=== PATIENT | female | born 1955 | race Two or more races ===

== ENCOUNTER → 2021-03-13 14:54 | Outpatient (BNVA) | payer MEDICARE, SELFPAY | PROVIDERS: PCP Internal Medicine; Visit Provider Hospitalist | DX: J45.40 Moderate persistent asthma, uncomplicated (principal); G47.33 Obstructive sleep apnea (adult) (pediatric); G47.00 Insomnia, unspecified | CPT/HCPCS: 99202 ==

== ENCOUNTER → 2021-07-12 13:51 | Outpatient (BNVA) | payer MEDICARE, SELFPAY | PROVIDERS: PCP Internal Medicine; Visit Provider Hospitalist | DX: J45.41 Moderate persistent asthma with (acute) exacerbation (principal); G47.33 Obstructive sleep apnea (adult) (pediatric); J06.9 Acute upper respiratory infection, unspecified | CPT/HCPCS: Q3014 ==

== ENCOUNTER → 2021-08-23 13:34 | Outpatient (BNVA) | payer OTHER, SELFPAY | PROVIDERS: PCP Internal Medicine Geriatric Medicine; Visit Provider Hospitalist | DX: J45.41 Moderate persistent asthma with (acute) exacerbation (principal); G47.33 Obstructive sleep apnea (adult) (pediatric); G47.00 Insomnia, unspecified; J06.9 Acute upper respiratory infection, unspecified | CPT/HCPCS: 94640; 99212 ==

== ENCOUNTER → 2022-01-10 13:03 | Outpatient (BNVA) | payer OTHER, SELFPAY | PROVIDERS: PCP Internal Medicine Geriatric Medicine; Visit Provider Hospitalist | DX: J44.9 Chronic obstructive pulmonary disease, unspecified (principal); J45.41 Moderate persistent asthma with (acute) exacerbation; G47.33 Obstructive sleep apnea (adult) (pediatric); G47.00 Insomnia, unspecified; J06.9 Acute upper respiratory infection, unspecified | CPT/HCPCS: Q3014 ==

== ENCOUNTER → 2022-06-28 13:32 | Outpatient (BNVA) | payer OTHER, SELFPAY | PROVIDERS: PCP Internal Medicine Geriatric Medicine; Visit Provider Hospitalist | DX: J45.41 Moderate persistent asthma with (acute) exacerbation (principal); J44.9 Chronic obstructive pulmonary disease, unspecified; G47.33 Obstructive sleep apnea (adult) (pediatric); Z99.89 Dependence on other enabling machines and devices | CPT/HCPCS: Q3014 ==

== ENCOUNTER → 2022-08-27 14:16 | Outpatient (BNVA) | payer OTHER, SELFPAY | PROVIDERS: PCP Internal Medicine Geriatric Medicine; Visit Provider Hospitalist | DX: J44.9 Chronic obstructive pulmonary disease, unspecified (principal); J45.41 Moderate persistent asthma with (acute) exacerbation; G47.33 Obstructive sleep apnea (adult) (pediatric); G47.00 Insomnia, unspecified; Z79.899 Other long term (current) drug therapy | CPT/HCPCS: 99212 ==

== ENCOUNTER 2023-10-30 14:09 | Outpatient (AMB) | payer OTHER, SELFPAY ==
--- NOTE | 2023-10-30 14:12 | MHC.OFFVIS ---
Vital Signs 10/30/23 14:13 Height 5 ft 3 in Weight 152 lb BMI 26.9 Pulse 74 Pulse Source Pulse Oximeter Pulse Oximetry (%) 98 Oxygen Delivery Method Room Air Intake Visit Reasons: Asthma Virtual Assistant [employer] Required: No Allergies pollen extracts Adverse Reaction (Severe, Verified 10/30/23 14:16) Rash Dust Adverse Reaction (Severe, Uncoded 10/30/23 14:16) Rash HPI Comments Details: The patient is a 68-year-old woman with a known history of asthma in addition to obstructive sleep apnea. The patient has been having issues with worsening shortness of breath. She has also complained of chest tightness and wheezing. She does have a Flovent Diskus inhaler which she uses daily. In addition to that she was given a combination inhaler. . The patient is very confused about her inhalers. I try to review the different classifications and why she needs to be on multiple inhalers to treat her asthma. The best option will be to provide her with a simple once a day therapy that will provide her better efficacy and also better adherence. I do believe the Trelegy inhaler be the best option for her. In addition to that she understands that she needs to carry her short-acting beta agonist as needed for when she gets chest tightness and wheezing. The patient does have a history of sleep apnea. She has not been using the CPAP. The patient did not tolerate the CPAP. We did review the sleep study she had many years ago which demonstrated only mild sleep apnea. I did recommend the patient continue positional therapy for now. The patient also has insomnia. She was requesting zolpidem. At this point I do not believe that is opening be a good option for her. I will send a gabapentin for now. This will provide her with a good sleep aid without developing any physical dependency. 01/10/2022 the patient has a telephone visit today. Overall the patient is doing better. She did start taking the Trelegy. it has been much more effective. The patient however has not been rinsing her mouth. Now she has issues with gingiva. She has significant teeth DKA. She is going to start rinsing bed early. In view of the gingival disease I will prescribe her chlorhexidine mouthwash at least she can use it for 14 days in hopes to improve her oral health. In the meantime the patient will continue to take the Trelegy but rinse afterwards. She is sleeping better with the Ambien. The patient understands that he will to monitor closely for any unusual symptoms she also should take medication holidays. She has tried multiple other sleep aids without will affect in this is much better for her. Will continue to monitor her progress. He is waking up rested her [place] score is below 8 which is reassuring. 06/28/2022 the patient is here for a visit. The patient is having worsening shortness of breath and cough. Moderate severity. Feels chest tightness. Denies any sick contacts. She denies any fevers. She has been using her inhalers with partial improvement. She is concerned that her symptoms are going to get worse. She does have a nebulizer but she is not aware where the nebulizer risk. I did recommend she can look for in order to start using nebulizer at will she will provide her some relief. In the meantime she can start a course of antibiotics for chest congestion bronchitis. The patient also can start prednisone is no better. I will send a prescription to the pharmacy. The next visit the patient will come into the office to be evaluated since she has not been seen in person since July of 2021. 08/27/2022 the patient is here for a pulmonary follow-up visit. The patient overall has been feeling better from a respiratory status. She is responding well to the Trelegy inhaler. The patient also has a rescue medication. She has been dealing with her dentition. She knows that she needs to rinse her mouth well after the Trelegy because they can worsen her gingival disease. At this point she will need to have her T taken now and then replaced with a denture. The patient also has been using the Ambien with good effect for sleep. She is also sleeping on her side as far as positional therapy to avoid significant sleep apnea. We did review her last chest x-ray from 2021 demonstrating no acute disease. The patient does not need any additional testing at this time. 10/30/2023 the patient is here for a pulmonary follow-up visit. The patient overall has been doing about the same. Still complains of dyspnea on exertion. She does use her rescue inhaler typically less than 2 times a week. The Trelegy inhaler has been very helpful. The patient has not had any recent imaging studies. The patient does complaint of sinus congestion. She will try a nasal spray to see if we can get her postnasal drip under control. Moderate severity. Otherwise her lungs sound well. The patient's last chest x-ray is back in 2021. No evidence of any active pulmonary disease. If the patient continues to have symptoms be helpful to get a chest x-ray. The patient also has been using Ambien for sleep with good effect. Otherwise patient is doing well she is going to continue the respiratory therapy and have an x-ray whenever possible. The patient follow-up in year's time. She knows about the Ambien. She needs to take breaks from it. If she develops any amnesia she needs to make sure those to tell her providers. [facility] Medical History (Updated 10/30/23 @ 14:18 by Christopher Pickens MD) Asthma-COPD overlap syndrome COPD (chronic obstructive pulmonary disease) URI (upper respiratory infection) Insomnia PRIMITIVO (obstructive sleep apnea) Asthma Social History (Updated 03/13/21 @ 15:24 by KERRY Chahal) Patient Tobacco Use Status: Never used Tobacco Review of Systems Const Reports daytime sleepiness, Reports difficulty sleeping, Denies night sweats and Denies snoring ENT Reports bleeding gums, Denies change in voice, Reports dental pain, Reports lip swelling, Denies mouth pain, Reports nasal congestion, Reports nasal discharge, Reports nasal obstruction and Denies tongue swelling Card Denies chest pain and Denies dyspnea Resp Denies chest congestion, Reports cough, Denies dyspnea, Denies snoring and Reports wheezing GI Denies abdominal pain Musc Denies no additional complaints Neuro Denies Neuro-related abnormal movements Psych Denies no additional complaints Gamal/Lymph Denies easy bleeding and Denies lymphadenopathy Aller/Immun Reports lip swelling, Denies tongue swelling and Reports wheezing Physical Exam Vital Signs: Last Vital Signs Pulse 74 10/30/23 14:13 Pulse Ox 98 10/30/23 14:13 Oxygen Delivery Method Room Air 10/30/23 14:13 BMI result Body Mass Index 26.9 Const General: alert HEENT General nose exam: Abnormal external nose present and Nasal discharge present Eyes Pupils: Equal, round and reactive pupils present Neck Neck: Yes normal visual inspection, Yes full ROM and Yes no lymphadenopathy Chest Chest palpation & inspection: normal inspection of the chest Resp Auscultation: diminished lung sounds Cardio Rate: regular rate Rhythm: regular rhythm Heart sounds: S1 normal heart sound present and S2 normal heart sound present GI Palpation (GI): Soft to palpation and nontender Auscultation: normal bowel sounds General: Yes no CVA tenderness Back/Spine/Pelvis Back: no CVA tenderness Skin General skin exam: rashes and/or lesions noted Neuro Cranial nerves: Yes Equal, round and reactive pupils present Assessment & Plan Assessment & Plan (1) Asthma: Code(s): J45.909 - Unspecified asthma, uncomplicated Category: Medical Qualifiers: Asthma complication type: with acute exacerbation Asthma persistence: persistent Asthma severity: moderate Qualified Code(s): J45.41 - Moderate persistent asthma with (acute) exacerbation (2) PRIMITIVO (obstructive sleep apnea): Comment: not on PAP therapy Code(s): G47.33 - Obstructive sleep apnea (adult) (pediatric) Category: Medical (3) Insomnia: Code(s): G47.00 - Insomnia, unspecified Category: Medical Qualifiers: Insomnia type: primary Qualified Code(s): F51.01 - Primary insomnia (4) Asthma-COPD overlap syndrome: Code(s): J44.9 - Chronic obstructive pulmonary disease, unspecified Category: Medical Plan Continue Trelegy, needs to rinse Nebulize therapy with albuterol short-acting beta agonist as needed positional therapy for her sleep apnea. fluticasone nasal spray CXR [facility] 8-12 months Orders: Orders XR chest 2V Today J44.9 - Chronic obstructive pulmonary disease, unspecified Medications: New fluticasone propionate 50 mcg/actuation 2 sprays intranasal DAILY 30 days 15.8 mL 11RF J31.0 - Chronic rhinitis Refilled zolpidem 10 mg PO BEDTIME 30 days PRN 30 tabs 3RF sleep Coding Level of Care Code Est Pt Level 4 (72553) Complex EM visit Add On G2211 Diagnoses Moderate persistent asthma with acute exacerbation J45.41 Asthma complication type: with acute exacerbation Asthma persistence: persistent Asthma severity: moderate PRIMITIVO (obstructive sleep apnea) G47.33 Primary insomnia F51.01 Insomnia type: primary Asthma-COPD overlap syndrome J44.9 Time Spent (min) 17
[2023-10-30 14:13] VITALS: PULSE 74; O2SAT 98; BMI 26.9
== END 2023-10-30 14:33 | disposition home or self-care (01) ==
PROVIDERS: PCP Internal Medicine Geriatric Medicine; Visit Provider Hospitalist
DX: J45.41 Moderate persistent asthma with (acute) exacerbation (principal); G47.33 Obstructive sleep apnea (adult) (pediatric); F51.01 Primary insomnia; J44.9 Chronic obstructive pulmonary disease, unspecified
CPT/HCPCS: 99214; G2211

== ENCOUNTER → 2023-10-30 14:09 | Outpatient (BNVA) | payer OTHER, SELFPAY | PROVIDERS: PCP Internal Medicine Geriatric Medicine; Visit Provider Hospitalist | DX: J45.41 Moderate persistent asthma with (acute) exacerbation (principal); J44.9 Chronic obstructive pulmonary disease, unspecified; J31.0 Chronic rhinitis; G47.33 Obstructive sleep apnea (adult) (pediatric); F51.01 Primary insomnia | CPT/HCPCS: 99212 ==

== ENCOUNTER 2024-01-08 13:30 | Outpatient (REF) | payer OTHER, SELFPAY | END 2024-01-08 13:31 | disposition home or self-care (01) | LOC: HO.XRAY 13:30 | PROVIDERS: PCP Student in an Organized Health Care Education/Training Program; Visit Provider Hospitalist | DX: M54.2 Cervicalgia (principal); J44.9 Chronic obstructive pulmonary disease, unspecified; J45.41 Moderate persistent asthma with (acute) exacerbation; G47.33 Obstructive sleep apnea (adult) (pediatric); F51.01 Primary insomnia; K21.9 Gastro-esophageal reflux disease without esophagitis; Z79.899 Other long term (current) drug therapy | CPT/HCPCS: 71046; 72040; 99212 ==

== ENCOUNTER 2024-01-08 13:30 | Outpatient (AMB) | payer OTHER, SELFPAY ==
[2024-01-08 13:35] VITALS: BP 128/70; PULSE 71; O2SAT 98; BMI 27.5
--- NOTE | 2024-01-08 13:35 | MHC.OFFVIS ---
Vital Signs 01/08/24 13:35 Height 5 ft 3 in Weight 155 lb BMI 27.5 BP 128/70 Blood Pressure Location Lt brachial Position Sitting Pulse 71 Pulse Source Pulse Oximeter Pulse Oximetry (%) 98 Oxygen Delivery Method Room Air Intake Visit Reasons: productive cough/wheeze/shortness of breath Allergies pollen extracts Adverse Reaction (Severe, Verified 01/08/24 13:37) Rash Dust Adverse Reaction (Severe, Uncoded 01/08/24 13:37) Rash HPI Comments Details: The patient is a 68-year-old woman with a known history of asthma in addition to obstructive sleep apnea. The patient has been having issues with worsening shortness of breath. She has also complained of chest tightness and wheezing. She does have a Flovent Diskus inhaler which she uses daily. In addition to that she was given a combination inhaler. . The patient is very confused about her inhalers. I try to review the different classifications and why she needs to be on multiple inhalers to treat her asthma. The best option will be to provide her with a simple once a day therapy that will provide her better efficacy and also better adherence. I do believe the Trelegy inhaler be the best option for her. In addition to that she understands that she needs to carry her short-acting beta agonist as needed for when she gets chest tightness and wheezing. The patient does have a history of sleep apnea. She has not been using the CPAP. The patient did not tolerate the CPAP. We did review the sleep study she had many years ago which demonstrated only mild sleep apnea. I did recommend the patient continue positional therapy for now. The patient also has insomnia. She was requesting zolpidem. At this point I do not believe that is opening be a good option for her. I will send a gabapentin for now. This will provide her with a good sleep aid without developing any physical dependency. 01/10/2022 the patient has a telephone visit today. Overall the patient is doing better. She did start taking the Trelegy. it has been much more effective. The patient however has not been rinsing her mouth. Now she has issues with gingiva. She has significant teeth DKA. She is going to start rinsing bed early. In view of the gingival disease I will prescribe her chlorhexidine mouthwash at least she can use it for 14 days in hopes to improve her oral health. In the meantime the patient will continue to take the Trelegy but rinse afterwards. She is sleeping better with the Ambien. The patient understands that he will to monitor closely for any unusual symptoms she also should take medication holidays. She has tried multiple other sleep aids without will affect in this is much better for her. Will continue to monitor her progress. He is waking up rested her [place] score is below 8 which is reassuring. 06/28/2022 the patient is here for a visit. The patient is having worsening shortness of breath and cough. Moderate severity. Feels chest tightness. Denies any sick contacts. She denies any fevers. She has been using her inhalers with partial improvement. She is concerned that her symptoms are going to get worse. She does have a nebulizer but she is not aware where the nebulizer risk. I did recommend she can look for in order to start using nebulizer at will she will provide her some relief. In the meantime she can start a course of antibiotics for chest congestion bronchitis. The patient also can start prednisone is no better. I will send a prescription to the pharmacy. The next visit the patient will come into the office to be evaluated since she has not been seen in person since July of 2021. 08/27/2022 the patient is here for a pulmonary follow-up visit. The patient overall has been feeling better from a respiratory status. She is responding well to the Trelegy inhaler. The patient also has a rescue medication. She has been dealing with her dentition. She knows that she needs to rinse her mouth well after the Trelegy because they can worsen her gingival disease. At this point she will need to have her T taken now and then replaced with a denture. The patient also has been using the Ambien with good effect for sleep. She is also sleeping on her side as far as positional therapy to avoid significant sleep apnea. We did review her last chest x-ray from 2021 demonstrating no acute disease. The patient does not need any additional testing at this time. 10/30/2023 the patient is here for a pulmonary follow-up visit. The patient overall has been doing about the same. Still complains of dyspnea on exertion. She does use her rescue inhaler typically less than 2 times a week. The Trelegy inhaler has been very helpful. The patient has not had any recent imaging studies. The patient does complaint of sinus congestion. She will try a nasal spray to see if we can get her postnasal drip under control. Moderate severity. Otherwise her lungs sound well. The patient's last chest x-ray is back in 2021. No evidence of any active pulmonary disease. If the patient continues to have symptoms be helpful to get a chest x-ray. The patient also has been using Ambien for sleep with good effect. Otherwise patient is doing well she is going to continue the respiratory therapy and have an x-ray whenever possible. The patient follow-up in year's time. She knows about the Ambien. She needs to take breaks from it. If she develops any amnesia she needs to make sure those to tell her providers. 01/08/2024 the patient is here for pulmonary follow-up visit. The patient is still complaining of worsening cough and shortness of breath. She does not feel any better. She continues on the Trelegy inhaler. Although the congestion is still there. She has not had a recent chest x-ray although she was supposed to have 1 that was order. She can have 1 done prior to discharge. In addition to that will treat her for about her bronchitis see if the mucus congestion improves. The patient does state the sometimes she has dyspepsia and sometimes she has food that comes up and she feels like good regurgitates an aspiration to her lungs. Will have her get a barium swallow before the next visit so we can address the question. Once the patient gets chest x-ray is vest abnormal will consider getting further imaging studies including CT scan of the chest to better address the chronic symptoms. [facility] Medical History (Updated 01/08/24 @ 13:49 by Christopher Pickens MD) Neck pain Asthma-COPD overlap syndrome COPD (chronic obstructive pulmonary disease) URI (upper respiratory infection) Insomnia PRIMITIVO (obstructive sleep apnea) Asthma Social History (Updated 03/13/21 @ 15:24 by KERRY Chahal) Patient Tobacco Use Status: Never used Tobacco Review of Systems Const Reports daytime sleepiness, Reports difficulty sleeping, Denies night sweats and Denies snoring ENT Reports bleeding gums, Denies change in voice, Reports dental pain, Reports lip swelling, Denies mouth pain, Reports nasal congestion, Reports nasal discharge, Reports nasal obstruction and Denies tongue swelling Card Denies chest pain and Denies dyspnea Resp Reports chest congestion, Reports cough, Denies dyspnea, Denies snoring and Reports wheezing GI Denies abdominal pain Musc Denies no additional complaints Neuro Denies Neuro-related abnormal movements Psych Denies no additional complaints Gamal/Lymph Denies easy bleeding and Denies lymphadenopathy Aller/Immun Reports lip swelling, Denies tongue swelling and Reports wheezing Physical Exam Vital Signs: Last Vital Signs Pulse 71 01/08/24 13:35 BP 128/70 01/08/24 13:35 Pulse Ox 98 01/08/24 13:35 Oxygen Delivery Method Room Air 01/08/24 13:35 BMI result Body Mass Index 27.5 Const General: alert HEENT General nose exam: Abnormal external nose present and Nasal discharge present Eyes Pupils: Equal, round and reactive pupils present Neck Neck: Yes normal visual inspection, Yes full ROM and Yes no lymphadenopathy Chest Chest palpation & inspection: normal inspection of the chest Resp Auscultation: diminished lung sounds Cardio Rate: regular rate Rhythm: regular rhythm Heart sounds: S1 normal heart sound present and S2 normal heart sound present GI Palpation (GI): Soft to palpation and nontender Auscultation: normal bowel sounds General: Yes no CVA tenderness Back/Spine/Pelvis Back: no CVA tenderness Skin General skin exam: rashes and/or lesions noted Neuro Cranial nerves: Yes Equal, round and reactive pupils present Assessment & Plan Assessment & Plan (1) Asthma: Code(s): J45.909 - Unspecified asthma, uncomplicated Category: Medical Qualifiers: Asthma complication type: with acute exacerbation Asthma persistence: persistent Asthma severity: moderate Qualified Code(s): J45.41 - Moderate persistent asthma with (acute) exacerbation (2) PRIMITIVO (obstructive sleep apnea): Comment: not on PAP therapy Code(s): G47.33 - Obstructive sleep apnea (adult) (pediatric) Category: Medical (3) Insomnia: Code(s): G47.00 - Insomnia, unspecified Category: Medical Qualifiers: Insomnia type: primary Qualified Code(s): F51.01 - Primary insomnia (4) Asthma-COPD overlap syndrome: Code(s): J44.9 - Chronic obstructive pulmonary disease, unspecified Category: Medical Plan start Doxycycline Prednisone if no better Continue Trelegy, needs to rinse Nebulize therapy with albuterol short-acting beta agonist as needed positional therapy for her sleep apnea. fluticasone nasal spray CXR/neck xray barium swallow continue Ambien for sleep follow-up in 6 months Orders: Orders XR chest 2V Today J44.9 - Chronic obstructive pulmonary disease, unspecified [place] barium swallow Today K21.9 - Gastro-esophageal reflux disease without esophagitis XR cervical spine 3V Today M54.2 - Cervicalgia Medications: New doxycycline monohydrate 100 mg PO BID 28 tabs 0RF 14 days prednisone PO daily; Take 2 tabs daily x 5 days, then 1 tablet daily x 5 days 15 tabs 0RF 10 days ipratropium-albuterol 0.5 mg-3 mg(2.5 mg base)/3 mL 3 mL inhalation BID 180 mL 11RF 30 days J44.9 - Chronic obstructive pulmonary disease, unspecified Coding Level of Care Code Est Pt Level 4 (28245) Diagnoses Moderate persistent asthma with acute exacerbation J45.41 Asthma complication type: with acute exacerbation Asthma persistence: persistent Asthma severity: moderate PRIMITIVO (obstructive sleep apnea) G47.33 Primary insomnia F51.01 Insomnia type: primary Asthma-COPD overlap syndrome J44.9 Time Spent (min) 16
== END 2024-01-08 13:50 | disposition home or self-care (01) ==
PROVIDERS: PCP Internal Medicine Geriatric Medicine; Visit Provider Hospitalist
DX: J45.41 Moderate persistent asthma with (acute) exacerbation (principal); G47.33 Obstructive sleep apnea (adult) (pediatric); F51.01 Primary insomnia; J44.9 Chronic obstructive pulmonary disease, unspecified
CPT/HCPCS: 99214

== ENCOUNTER 2024-06-30 09:01 | Outpatient (REF) | payer OTHER, SELFPAY ==
--- NOTE | ~2024-06-30 | FL_ITS ---
EXAMINATION: XR FLUOROSCOPY ESOPHAGRAM CLINICAL INFORMATION: 68-year-old female. Gastroesophageal reflux disease. COMPARISON: No prior. TECHNIQUE: Fluoroscopic air contrast upper GI examination was performed utilizing standard techniques with thin and thick barium and effervescent granules. Numerous spot images were obtained. Several fluoroscopic image hold cine sequences were also obtained. FINDINGS: UPPER GI SERIES: Lateral cine images of the oropharynx and hypopharynx demonstrate normal swallow mechanism with normal epiglottic inversion and soft palate elevation. Transient laryngeal penetration, without glottic or subglottic aspiration identified. No nasopharyngeal reflux present. Hypopharyngeal structures appear normal without evidence of mass or diverticulum. There was minimal cricopharyngeal achalasia. Dual and single contrast images of the esophagus demonstrate normal caliber and contour. Granular appearance to the esophageal mucosa. No evidence of stricture, mass, or ulcerations identified. Esophageal peristalsis is mild to moderately disordered. Feline contraction pattern noted. Small to moderate-sized type I hiatus hernia identified. Episodic gastroesophageal reflux noted during the examination to the level of the aortic arch. Dual contrast and single contrast images of the stomach demonstrated normal contour and rugal fold pattern no evidence of mass or polyp. A few tiny superficial foci of contrast pooling noted in the stomach, suggestive of shallow mucosal ulcerations. Contrast freely passed into the gastric antrum and duodenal bulb without delay. Single and air-contrast images of the duodenal bulb demonstrate no abnormality. The duodenal sweep has a normal appearance, course, and mucosal fold appearance. FLUOROSCOPY TIME: 3 minutes, 3 seconds Number of Spot Images:11 Number of cines obtained: 7 DOSE AREA PRODUCT: 2801 uGy-m2 (microgray-meter squared) FL/FL barium swallow with air IMPRESSION: 1. Transient laryngeal penetration without glottic or subglottic aspiration. 2. Granular appearance of the esophageal mucosa, suggesting reflux esophagitis. 3. Mild to moderately disordered esophageal peristalsis. Feline contraction pattern of the esophagus, in keeping with chronic reflux. 4. Small to moderate-sized type I hiatus hernia. 5. Episodic gastroesophageal reflux noted. 6. A few small tiny superficial mucosal ulcerations noted in the stomach, suggesting mild gastritis. Electronically signed by: Hudson Covington MD 06/30/2024 11:16 AM EDT
--- OUTSIDE RECORDS SUMMARY | 2024-06-30 09:54 | XMS_ITS | Clinical Summary ---
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 0 Active oxyCODONE (ROXICODONE) 10 mg immediate release tablet Take 1 tablet (10mg ) by mouth every 12 hours for 2 weeks, then take 1/2 tablet (5mg ) by mouth every 12 hours for 2 weeks. Contact PCP office when due for next refill of tapering dose. 2 Active levothyroxine (SYNTHROID, LEVOTHROID) 125 mcg tablet Take 1 tablet (125 mcg total) by mouth 1 (one) time each day. 2 Active lanolin 50 % ointment Apply to lips QID PRN 0 Active ketoconazole (NIZORAL) 2 % shampoo APPLY 3 TIMES A WEEK TO THE SCALP, LEAVE IT ON FOR 2 MINUTES AND THEN RINSE WITH WATER. 2 Active gabapentin (NEURONTIN) 300 mg capsule One at bedtime for insomnia, perscribed by pulm 2 Active diclofenac (VOLTAREN) 1 % topical gel APPLY TOPICALLY TO AFFECTED AREA ON BACK ONCE DAILY 2 Active clotrimazole-be tamethasone (LOTRISONE) 1-0.05 % cream Apply topically 2 times daily. 0 Active citalopram (CeleXA) 10 mg tablet Take 1 tablet (10 mg total) by mouth 1 (one) time each day. 2 Active cetirizine (ZyrTEC) 10 mg tablet Take 1 Tab by mouth daily for 360 days. 0 Active atenoloL (TENORMIN) 25 mg tablet Take 1 tablet (25 mg total) by mouth 1 (one) time each day. 2 Active albuterol HFA (PROAIR HFA ; PROVENTIL HFA ; VENTOLIN HFA) 90 mcg/actuation inhaler Take 2 Puffs by mouth every 6 hours as needed for Cough or Wheezing for up to 30 days. 0 Active albuterol 2.5 mg /3 mL (0.083 %) nebulizer solution Take 1 Vial by nebulization every 4 hours as needed for Wheezing for up to 30 days. 9 Active acetaminophen (TYLENOL) 500 mg tablet TAKE 1 TAB BY MOUTH 3 TIMES DAILY NEEDED FOR PAIN. 0 Active BISACODYL ORAL Take 2 tablets by mouth right before your first dose of liquid prep. 2 Active Active Problems Problem Noted Date Diagnosed Date Arthritis 04/25/2024 Gastritis 04/25/2024 Asthma 04/25/2024 Hyperlipidemia 04/25/2024 Hypertension 04/25/2024 Hypothyroidism 04/25/2024 Panic attack 04/25/2024 Chronic pain syndrome 05/10/2021 Narcotic drug use 05/10/2021 Anxiety 02/05/2021 Overweight (BMI 25.0-29.9) 01/13/2020 Osteoporosis 04/05/2018 Overview (04/25/2024): 03/17- [facility] from ophthalmic pathologist Obstructive sleep apnea 12/04/2017 Overview (04/25/2024): [facility] Home Polysomnogram: Date 12/01/2017; AHI 10, Unclassified apneas 1; Obstructive apneas 6; Central apneas 4; Mixed apneas 0; hypopneas 15; average oxygen saturation 95% (lowest 90% without saturations <88% for 5% or more of study) - Obstructive Sleep Apnea - mild; mostly hypopneas with some obstructive apneas; without sleep related hypoventilation by 2018 home polysomnogram. Allergic rhinitis 11/17/2017 Pterygium of both eyes 02/27/2017 GERD (gastroesophageal reflux disease) 5 Hepatic steatosis 04/25/2014 Irritable bowel syndrome 04/25/2014 Immunizations Name Administration Dates Next Due Tdap Tetanus diptheria acell ular pertussis (Boostrix; Adacel) 7yo and older 10/05/2012 Surgical History Surgery Date Site/Laterality Comments HYSTERECTOMY PROCEDURE: HISTORICAL HYSTERECTOMY; COMMENT: Fibroid, [facility] OOPHORECTOMY PROCEDURE: HISTORICAL OOPHORECTOMY; COMMENT: Unilateral, cyst, adhesions Medical History Medical History Date Comments Asthma DX:Asthma Arthritis DX:Arthritis Hypothyroidism DX:Hypothyroidis m Hyperlipidemia DX:Hyperlipidemi a Gastritis DX:Gastritis Panic attack DX:Panic attack Hypertension DX:Hypertension Pterygium of both eyes 02/27/2017 DX:Pteryg ium of both eyes Osteoporosis 04/05/2018 DX:Osteoporosis; COMMENT: 03/17 Family History Medical History Relation Name Comments Heart attack Brother Heart attack Father Mental illness Father chol Other cancer Father urinary cancer Alzheimer's disease Mother Heart attack Mother Mental illness Mother chol, Breast cancer Sister Bipolar disorder Son 1 Schizophrenia Son 2 Relation Name Status Comments Brother Father Alive Mother Alive Sister Son 1 Son 2 Social History Tobacco Use Types Packs/Day Years Used Date Smoking Tobacco: Never Smokeless Tobacco: Never Alcohol Use Standard Drinks/Week Comments No 0 (1 standard drink = 0.6 oz pur e alcohol) Comments Unknown Sex and Gender Information Value Date Recorded Sex Assigned at Not on file Legal Sex Female 3:00 AM EST Gender Identity Not on file Sexual Orientation Not on file Obstetrics History Plan of Treatment Health Maintenance Due Date Last Done Comments Pneumococcal Vaccine: 50+ Years (1 of 2 - PCV) 1972 Zoster Vaccines (1 of 2) 10/12/2003 RSV Immunization Adult Patients (1 - Risk 60-74 years 1-dose series) 2013 Colorectal Cancer Screening: Colonoscopy 03/03/2022 Depression Screening 03/03/2022 Falls Risk Assessment 03/03/2022 Social Influencers of Health Screening 03/03/2022 Hypertension/CHF/CAD Annual BMP Blood Test 05/10/2022 05/10/2021 DTaP,Tdap,and Td Vaccines (2 - Td or Tdap) 10/05/2022 10/05/2012 Breast Cancer Screening 05/16/2023 05/16/19, 05/07/2019 COVID-19 Vaccine (1 - 2023-2 5 season) 2023 Influenza Vaccine (#1) 2023 Cholesterol Screening (Lipid Panel) 05/10/2026 05/10/2021 Osteoporosis Screening (Bone Density Screening) 05/16/2031 05/16/2021, 10/03/2020, 03/20/2018 Hepatitis C Screening Completed 04/27/2013 HIB Vaccines Aged Out No longer eligi ble based on patient's age to complete this topic HPV Vaccines Aged Out No longer eligi ble based on patient's age to complete this topic Hepatitis A Vaccines Aged Out No long er eligible based on patient's age to complete this topic Hepatitis B Vaccines Aged Out No long er eligible based on patient's age to complete this topic IPV Vaccines Aged Out No longer eligi ble based on patient's age to complete this topic MMR Vaccines Aged Out No longer eligi ble based on patient's age to complete this topic Meningococcal ACWY Vaccine Aged Out N o longer eligible based on patient's age to complete this topic Meningococcal B Vacine Aged Out No lo nger eligible based on patient's age to complete this topic RSV Immunization Patients Under 20 months Aged Out No longer eligible b ased on patient's age to complete this topic Varicella Vaccines Aged Out No longer eligible based on patient's age to complete this topic Procedures Procedure Name Priority Date/Time Associated Diagnosis Comments [facility] SCREENING DIGITAL Routine 05/16/2021 3:42 PM EST Encounter for screening mammogram for malignant neoplasm of breast [facility] DEXA AXIAL SKELETON Routine 05/16/2021 3:22 PM EST Encounter for screening for osteoporosis ANNUAL BMP BLOOD TEST Routine 05/10/2021 LIPID PANEL Routine 05/10/2021 HEPATITIS C SCREENING Routine 04/27/2013 from Last 3 Months or Most Recently Relevant to Health Maintenance Results * [facility] SCREENING DIGITAL (05/16/2021 3:42 PM EST) Anatomical Region Laterality Modality Mammography 05/16/2021 1:31 PM EST Narrative 05/16/2021 3:42 PM EST [facility] Diagnostic Imaging Department [address] [place] [address] Patient: ??LUZMA LOPEZ ?/Age/Sex: 1955 - 65 - F Unit#: ??[id number] ? Location/Status: ??SPDIMAM/REG CLI ? Mnemonic/Ordering Site: ??DIGSC/SPMAM Ordering Physician: ??KRZYSZTOFKWAKU CNM [facility] Screening Digital - 05/16/21 - 1351 EXAM: [facility] Screening Digital EXAM DATE AND TIME: 05/16/2021 1:51 PM HISTORY: ??Screening. Sister had breast carcinoma age 60. COMPARISON: ??05/07/19, 10/15/17, 03/18/16, 08/25/14 TECHNIQUE: CC and MLO views of both breasts were obtained using full field digital mammography. Bilateral digital breast tomosynthesis was performed in the MLO projection. 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 TISSUE DENSITY: b. There are scattered areas of fibroglandular density. FINDINGS: No suspicious masses, grouped microcalcifications, or areas of architectural distortion are seen. There are rare benign calcifications. The skin and vascularity are unremarkable. IMPRESSION: Stable mammographic appearance of the breasts. ??No evidence of malignancy is seen. A negative mammogram in the presence of a clinically suspicious palpable abnormality does not preclude the possibility of malignancy or alter the indications for biopsy. BI-RADS: ??Category 2: Benign RECOMMENDATION(S): 1: Routine screening mammogram BILATERAL in 1 year. 82132, 72741 3342F, 7025F Dictating Physician: ??AALIYAH PEÑA MD Electronically Signed by: ??AALIYAH PEÑA MD Dic Date/Time: ??05/16/211541 Sign date/Time: ??05/16/211541 Procedure Note Aaliyah Peña MD - 03/20/2022 [facility] Diagnostic Imaging Department [address] [place] [address] Patient: LUZMA LOPEZ.O.B./Age/Sex: 1955 - 65 - F Unit#: [id number] Location/Status: [facility] CLI Mnemonic/Ordering Site: [facility] Ordering Physician: KWAKU SNELL CNM [facility] Screening Digital - 05/16/21 - 1351 EXAM: [facility] Screening Digital EXAM DATE AND TIME: 05/16/2021 1:51 PM HISTORY: Screening. Sister had breast carcinoma age 60. COMPARISON: 05/07/19, 10/15/17, 03/18/16, 08/25/14 TECHNIQUE: CC and MLO views of both breasts were obtained using fullfield digital mammography. Bilateral digital breast tomosynthesis was performedin the MLO projection. 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 TISSUE DENSITY: b. There are scattered areas of fibroglandular density. FINDINGS: No suspicious masses, grouped microcalcifications, or areas ofarchitectural distortion are seen. There are rare benign calcifications. The skin and vascularity are unremarkable. IMPRESSION: Stable mammographic appearance of the breasts. No evidence of malignancyis seen. A negative mammogram in the presence of a clinically suspicious palpable abnormality does not preclude the possibility of malignancy or alter the indications for biopsy. BI-RADS: Category 2: Benign RECOMMENDATION(S): 1: Routine screening mammogram BILATERAL in 1 year. 68994, 15565 3342F, 7025F Dictating Physician: AALIYAH PEÑA MD Electronically Signed by: AALIYAH PEÑA MD Dic Date/Time: 05/16/211541 Sign date/Time: 05/16/211541 Kwaku Snell [facility] IMG BI PROCEDURES Final Result * [facility] DEXA AXIAL SKELETON (05/16/2021 3:22 PM EST) Anatomical Region Laterality Modality Mammography 05/16/2021 1:32 PM EST Narrative 05/16/2021 3:22 PM EST [facility] Diagnostic Imaging Department [address] [place] [address] Patient: ??LUZMA LOPEZ ?/Age/Sex: 1955 - - Unit#: ??[id number] ? Location/Status: ??SPDIMAM/REG CLI ? Mnemonic/Ordering Site: ??MAMDEXAAX/SPMAM Ordering Physician: ??KWAKU SNELL Nadria Vicky Dexa Axial Skeleton - 05/16/211450 HISTORY: Post menopausal woman with hormone depletion for screening bone densitometry. The patient is on steroid inhaler. TECHNIQUE: Bone densitometry is performed utilizing dual energy x-ray absorptiometry (DEXA) in the incrediblue unit. The lumbar spine is evaluated in the AP projection and L1 through L4 are utilized. The proximal femora are evaluated in the AP projection bilaterally. FINDINGS: AP spine: Bone mineral density: 0.992 gm/cm2 T-score: -1.7 Z-score: -0.4 Dual Femur (mean): Bone mineral density: 0.886 gm/cm2 T-score: -1.0 Z-score: 0.2 IMPRESSION: Osteopenia in the lumbar spine. Average normal bone mineralization in the bilateral hips. Comparison with prior examination 03/20/2018, there is increased bone mineralization within the lumbar spine and increased bone mineralization within the left proximal femur and increased bone mineralization in the right proximal femur. [id number] A report detailing these results has been enclosed. Dictating Physician: ??HOUSTON GLOVER MD Electronically Signed by: ??HOUSTON GLOVER MD Dic Date/Time: ??05/16/21 1520 Sign date/Time: ??05/16/21 1522 Procedure Note Houston Glover MD - 03/20/2022 [facility] Diagnostic Imaging Department [address] [place], [place] [id number] Patient: LUZMA LOPEZ /Age/Sex: 1955 - 65 - F Unit#: [id number] Location/Status: SPDIMAM/REG CLI Mnemonic[facility] Ordering Physician: KWAKU NSELL CNM [facility] Dexa Axial Skeleton - 05/16/21 - 145 HISTORY: Post menopausal woman with hormone depletion for screening bone densitometry. The patient is on steroid inhaler. TECHNIQUE: Bone densitometry is performed utilizing dual energy x-ray absorptiometry (DEXA) in the incrediblue unit. The lumbar spine isevaluated in the AP projection and L1 through L4 are utilized. The proximal femoraare evaluated in the AP projection bilaterally. FINDINGS: AP spine: Bone mineral density: 0.992 gm/cm2 T-score: -1.7 Z-score: -0.4 Dual Femur (mean): Bone mineral density: 0.886 gm/cm2 T-score: -1.0 Z-score: 0.2 IMPRESSION: Osteopenia in the lumbar spine. Average normal bone mineralization in the bilateral hips. Comparison with prior examination 03/20/2018, there is increased bone mineralization within the lumbar spine and increased bone mineralizationwithin the left proximal femur and increased bone mineralization in the rightproximal femur. [id number] A report detailing these results has been enclosed. Dictating Physician: HOUSTON GLOVER MD Electronically Signed by: HOUSTON GLOVER MD Dic Date/Time: 05/16/21 1520 Sign date/Time: 05/16/21 152 Kwaku Snell CNM IMG BI PROCEDURES Final Result * Annual BMP Blood Test (05/10/2021) Annual BMP Blood Test abstracted Historical Provider HEALTH MAINTENANCE Final Result * (ABNORMAL) Lipid panel (05/10/2021) LDL/HDL Ratio 5(A) 0 - 4 Triglycerides 327(A) 0 - 150 mg/dL Cholesterol 220(A) 0 - 200 mg/dL HDL 44 >=40 mg/dL LDL Cholesterol 111(A) 0 - 100 mg/dL Blood Venous blood specimen / Unknown us Historical Provider LAB BLOOD ORDERABLES Salome l Result * Hepatitis C Screening (04/27/2013) Hepatitis C Screening abstracted us Historical Provider HEALTH MAINTENANCE Final Result from Last 3 Months or Most Recently Relevant to Health Maintenance 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
== END 2024-06-30 09:02 | disposition home or self-care (01) ==
LOC: HO.XRAY 09:01
PROVIDERS: PCP Student in an Organized Health Care Education/Training Program; Visit Provider Hospitalist
DX: K21.9 Gastro-esophageal reflux disease without esophagitis (principal)
CPT/HCPCS: 74221

== ENCOUNTER → 2024-06-30 09:05 | Outpatient (BNV) | payer OTHER, SELFPAY | PROVIDERS: PCP Student in an Organized Health Care Education/Training Program; Visit Provider Radiology Diagnostic Radiology | DX: K44.9 Diaphragmatic hernia without obstruction or gangrene (principal); K22.4 Dyskinesia of esophagus; K21.9 Gastro-esophageal reflux disease without esophagitis; K25.9 Gastric ulcer, unspecified as acute or chronic, without hemorrhage or perforation | CPT/HCPCS: 74221 ==

== ENCOUNTER 2024-09-07 08:46 | Outpatient (AMB) | payer OTHER, SELFPAY ==
[2024-09-07 08:52] VITALS: BP 140/88; PULSE 88; O2SAT 97; BMI 27.9
--- NOTE | 2024-09-07 08:52 | MHC.OFFVIS ---
Vital Signs 09/07/24 08:52 Height 5 ft 3 in Weight 157 lb 10.088 oz BMI 27.9 BP 140/88 H Blood Pressure Location Lt brachial Position Sitting Pulse 88 Pulse Source Pulse Oximeter Pulse Oximetry (%) 97 Oxygen Delivery Method Room Air Intake Visit Reasons: Asthma/Barium Swallow follow up Accompanied by: Self / Same As Patient Allergies pollen extracts Adverse Reaction (Severe, Verified 09/07/24 08:55) Rash Dust Adverse Reaction (Severe, Uncoded 01/08/24 13:37) Rash HPI Comments Details: The patient is a 68-year-old woman with a known history of asthma in addition to obstructive sleep apnea. The patient has been having issues with worsening shortness of breath. She has also complained of chest tightness and wheezing. She does have a Flovent Diskus inhaler which she uses daily. In addition to that she was given a combination inhaler. . The patient is very confused about her inhalers. I try to review the different classifications and why she needs to be on multiple inhalers to treat her asthma. The best option will be to provide her with a simple once a day therapy that will provide her better efficacy and also better adherence. I do believe the Trelegy inhaler be the best option for her. In addition to that she understands that she needs to carry her short-acting beta agonist as needed for when she gets chest tightness and wheezing. The patient does have a history of sleep apnea. She has not been using the CPAP. The patient did not tolerate the CPAP. We did review the sleep study she had many years ago which demonstrated only mild sleep apnea. I did recommend the patient continue positional therapy for now. The patient also has insomnia. She was requesting zolpidem. At this point I do not believe that is opening be a good option for her. I will send a gabapentin for now. This will provide her with a good sleep aid without developing any physical dependency. 01/10/2022 the patient has a telephone visit today. Overall the patient is doing better. She did start taking the Trelegy. it has been much more effective. The patient however has not been rinsing her mouth. Now she has issues with gingiva. She has significant teeth DKA. She is going to start rinsing bed early. In view of the gingival disease I will prescribe her chlorhexidine mouthwash at least she can use it for 14 days in hopes to improve her oral health. In the meantime the patient will continue to take the Trelegy but rinse afterwards. She is sleeping better with the Ambien. The patient understands that he will to monitor closely for any unusual symptoms she also should take medication holidays. She has tried multiple other sleep aids without will affect in this is much better for her. Will continue to monitor her progress. He is waking up rested her [place] score is below 8 which is reassuring. 06/28/2022 the patient is here for a visit. The patient is having worsening shortness of breath and cough. Moderate severity. Feels chest tightness. Denies any sick contacts. She denies any fevers. She has been using her inhalers with partial improvement. She is concerned that her symptoms are going to get worse. She does have a nebulizer but she is not aware where the nebulizer risk. I did recommend she can look for in order to start using nebulizer at will she will provide her some relief. In the meantime she can start a course of antibiotics for chest congestion bronchitis. The patient also can start prednisone is no better. I will send a prescription to the pharmacy. The next visit the patient will come into the office to be evaluated since she has not been seen in person since July of 2021. 08/27/2022 the patient is here for a pulmonary follow-up visit. The patient overall has been feeling better from a respiratory status. She is responding well to the Trelegy inhaler. The patient also has a rescue medication. She has been dealing with her dentition. She knows that she needs to rinse her mouth well after the Trelegy because they can worsen her gingival disease. At this point she will need to have her T taken now and then replaced with a denture. The patient also has been using the Ambien with good effect for sleep. She is also sleeping on her side as far as positional therapy to avoid significant sleep apnea. We did review her last chest x-ray from 2021 demonstrating no acute disease. The patient does not need any additional testing at this time. 10/30/2023 the patient is here for a pulmonary follow-up visit. The patient overall has been doing about the same. Still complains of dyspnea on exertion. She does use her rescue inhaler typically less than 2 times a week. The Trelegy inhaler has been very helpful. The patient has not had any recent imaging studies. The patient does complaint of sinus congestion. She will try a nasal spray to see if we can get her postnasal drip under control. Moderate severity. Otherwise her lungs sound well. The patient's last chest x-ray is back in 2021. No evidence of any active pulmonary disease. If the patient continues to have symptoms be helpful to get a chest x-ray. The patient also has been using Ambien for sleep with good effect. Otherwise patient is doing well she is going to continue the respiratory therapy and have an x-ray whenever possible. The patient follow-up in year's time. She knows about the Ambien. She needs to take breaks from it. If she develops any amnesia she needs to make sure those to tell her providers. 01/08/2024 the patient is here for pulmonary follow-up visit. The patient is still complaining of worsening cough and shortness of breath. She does not feel any better. She continues on the Trelegy inhaler. Although the congestion is still there. She has not had a recent chest x-ray although she was supposed to have 1 that was order. She can have 1 done prior to discharge. In addition to that will treat her for about her bronchitis see if the mucus congestion improves. The patient does state the sometimes she has dyspepsia and sometimes she has food that comes up and she feels like good regurgitates an aspiration to her lungs. Will have her get a barium swallow before the next visit so we can address the question. Once the patient gets chest x-ray is vest abnormal will consider getting further imaging studies including CT scan of the chest to better address the chronic symptoms. 09/07/2024 the patient is here for pulmonary follow-up visit. The patient has been complaining of difficulty swallowing. Reflux disease. She also complains of abdominal discomfort. She did have a barium swallow was very abnormal demonstrating some laryngeal penetration although no overt aspiration in addition to esophagitis and gastritis her hiatal hernia and moderate dysmotility. Will start her on azithromycin for promotility purposes. She needs to be seen by GI in order to undergo endoscopy. She is also having some abdominal discomfort and hopefully they can help with that as well. Meantime she continues with respiratory therapy. She understands the GI issues will ultimately affect her wheezing cough therefore it is important to treated. Will start her on a PPI and she needs to keep her reflux diet going to make sure since she is sleeping elevated. Will follow-up in 3-4 months. While on the azithromycin she is to get an EKG to make sure that it PFSH Medical History (Updated 09/07/24 @ 09:28 by Christopher Pickens MD) Abdominal pain Hiatal hernia Neck pain Asthma-COPD overlap syndrome COPD (chronic obstructive pulmonary disease) URI (upper respiratory infection) Insomnia PRIMITIVO (obstructive sleep apnea) Asthma Social History (Updated 03/13/21 @ 15:24 by Mercedez Shipman [facility]) Patient Tobacco Use Status: Never used Tobacco Review of Systems Const Reports daytime sleepiness, Reports difficulty sleeping, Denies night sweats and Denies snoring ENT Reports bleeding gums, Denies change in voice, Reports dental pain, Reports lip swelling, Denies mouth pain, Reports nasal congestion, Reports nasal discharge, Reports nasal obstruction and Denies tongue swelling Card Denies chest pain and Denies dyspnea Resp Reports chest congestion, Reports cough, Denies dyspnea, Denies snoring and Reports wheezing GI Denies abdominal pain Musc Denies no additional complaints Neuro Denies Neuro-related abnormal movements Psych Denies no additional complaints Gamal/Lymph Denies easy bleeding and Denies lymphadenopathy Aller/Immun Reports lip swelling, Denies tongue swelling and Reports wheezing Physical Exam Vital Signs: Last Vital Signs Pulse 88 09/07/24 08:52 BP 140/88 H 09/07/24 08:52 Pulse Ox 97 09/07/24 08:52 Oxygen Delivery Method Room Air 09/07/24 08:52 BMI result Body Mass Index 27.9 Const General: alert HEENT General nose exam: Abnormal external nose present and Nasal discharge present Eyes Pupils: Equal, round and reactive pupils present Neck Neck: Yes normal visual inspection, Yes full ROM and Yes no lymphadenopathy Chest Chest palpation & inspection: normal inspection of the chest Resp Auscultation: diminished lung sounds Cardio Rate: regular rate Rhythm: regular rhythm Heart sounds: S1 normal heart sound present and S2 normal heart sound present GI Palpation (GI): Soft to palpation and nontender Auscultation: normal bowel sounds General: Yes no CVA tenderness Back/Spine/Pelvis Back: no CVA tenderness Skin General skin exam: rashes and/or lesions noted Neuro Cranial nerves: Yes Equal, round and reactive pupils present Assessment & Plan Assessment & Plan (1) Asthma: Code(s): J45.909 - Unspecified asthma, uncomplicated Category: Medical Qualifiers: Asthma complication type: with acute exacerbation Asthma persistence: persistent Asthma severity: moderate Qualified Code(s): J45.41 - Moderate persistent asthma with (acute) exacerbation (2) PRIMITIVO (obstructive sleep apnea): Comment: not on PAP therapy Code(s): G47.33 - Obstructive sleep apnea (adult) (pediatric) Category: Medical (3) Insomnia: Code(s): G47.00 - Insomnia, unspecified Category: Medical Qualifiers: Insomnia type: primary Qualified Code(s): F51.01 - Primary insomnia (4) Asthma-COPD overlap syndrome: Code(s): J44.9 - Chronic obstructive pulmonary disease, unspecified Category: Medical (5) Hiatal hernia: Code(s): K44.9 - Diaphragmatic hernia without obstruction or gangrene Category: Medical (6) Abdominal pain: Code(s): R10.9 - Unspecified abdominal pain Category: Medical Qualifiers: Abdominal location: left upper quadrant Qualified Code(s): R10.12 - Left upper quadrant pain Plan Continue Trelegy, needs to rinse Nebulize therapy with albuterol short-acting beta agonist as needed positional therapy for her sleep apnea. fluticasone nasal spray barium swallow, abnormal, needs an EGD and also complaining of abdominal pain. Will refer to GI-pt requesting at [facility] which is closest start Omeprazole start Azithromycin as a promotility agent Will need to get an EKG once on the macrolide continue Ambien for sleep follow-up in 4 months Orders: Orders ECG 12 lead EKG Today J44.9 - Chronic obstructive pulmonary disease, unspecified Referrals Gastroenterology Referral K44.9 - Diaphragmatic hernia without obstruction or gangrene, R10.9 - Unspecified abdominal pain Medications: New azithromycin Take 1 tablet on Friday/Friday/Friday 250 mg PO 3XW 12 tabs 2RF 28 days K21.9 - Gastro-esophageal reflux disease without esophagitis omeprazole 40 mg PO DAILY 30 caps 6RF 30 days Coding Level of Care Code Est Pt Level 4 (11901) Complex EM visit Add On G2211 Diagnoses Moderate persistent asthma with acute exacerbation J45.41 Asthma complication type: with acute exacerbation Asthma persistence: persistent Asthma severity: moderate PRIMITIVO (obstructive sleep apnea) G47.33 Primary insomnia F51.01 Insomnia type: primary Asthma-COPD overlap syndrome J44.9 Hiatal hernia K44.9 Left upper quadrant abdominal pain R10.12 Abdominal location: left upper quadrant Time Spent (min) 18
--- OUTSIDE RECORDS SUMMARY | 2024-09-07 09:10 | XMS_ITS | Clinical Summary ---
Author Organization [facility] Address [address] [place] [address] Phone Care Team Providers Care Director Utilization Management Name Role Phone Neel Krishnamurthy MD Primary Care Pr ovider Allergies Active Allergy Reactions Criticality Noted Date [...] Active Problems Problem Noted Date Diagnosed Date Calcified lymph nodes 08/22/2024 Arthritis 04/25/2024 Gastritis 04/25/2024 Asthma 04/25/2024 Hyperlipidemia 04/25/2024 Hypertension 04/25/2024 Hypothyroidism 04/25/2024 Panic attack 04/25/2024 Chronic pain syndrome 05/10/2021 Narcotic drug use 05/10/2021 Anxiety 02/05/2021 Overweight (BMI 25.0-29.9) 01/13/2020 Osteoporosis 04/05/2018 Overview (04/25/2024): 03/17- 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] Sexual Orientation Not on file Obstetrics History Last Filed Vital Signs Vital Sign Reading Time Taken Comments Blood Pressure 184/81 08/22/2024 9:03 PM EDT Pulse 59 08/22/2024 9:03 PM EDT Temperature 36.7 ??C (98.1 ??F) 08/22/2024 9:03 PM ED T Respiratory Rate 18 08/22/2024 9:03 PM EDT Oxygen Saturation 100% 08/22/2024 9:03 PM EDT Inhaled Oxygen Concentration - - Weight - - Height - - Body Mass Index - - Plan of Treatment Health Maintenance Due Date [...] Cancer Screening 05/16/2023 05/16/19, 05/07/2019 COVID-19 Vaccine ( - 2023-2 5 season) 2023 Influenza Vaccine (Season Ended) 2024 Cholesterol Screening (Lipid Panel) 05/10/2026 05/10/2021 Osteoporosis [...] age to complete this topic Meningococcal B Vaccine Aged Out No l onger eligible based on patient's age to complete this topic RSV Immunization Patients Under 20 months Aged Out No longer eligible b ased on patient's age to complete this topic Varicella Vaccines Aged Out No longer eligible based on patient's age to complete this topic Procedures Procedure Name Priority Date/Time Associated Diagnosis Comments VAS US DUPLEX UPPER EXT VENOUS RIGHT Routine 08/22/2024 8:17 PM EDT Right forearm pain [facility] SCREENING DIGITAL Routine 05/16/2021 3:42 PM EST Encounter for screening mammogram for malignant neoplasm of breast [facility] DEXA AXIAL SKELETON Routine 05/16/2021 3:22 PM EST Encounter for screening for osteoporosis ANNUAL BMP BLOOD TEST Routine 05/10/2021 LIPID PANEL Routine 05/10/2021 HEPATITIS C SCREENING Routine 04/27/2013 from Last 3 Months or Most Recently Relevant to Health Maintenance Results * Vascular US duplex upper extremity venous right (08/22/2024 8:17 PM EDT) Anatomical Region Laterality Modality Vascular, Abdomen Ultrasound 08/22/2024 8:34 PM EDT Impressions 08/22/2024 8:34 PM EDT Impression: No deep vein thrombosis. This document has been electronically signed by: Maira Valencia MD on 08/22/2024 20:34:02 Narrative 08/22/2024 8:34 PM EDT INDICATION: forearm pain Right upper extremity venous duplex ultrasound Comparison: None Findings: The visualized deep veins are fully compressible with normal flow. Soft tissue calcification in the forearm measuring 1.1 x 0.5 x 0.6 cm. Question lymph node calcification. Procedure Note Maira Coy MD - 08/22/2024 INDICATION: forearm pain Right upper extremity venous duplex ultrasound Comparison: None Findings: The visualized deep veins are fully compressible with normal flow. Soft tissue calcification in the forearm measuring 1.1 x 0.5 x 0.6 cm. Question lymph node calcification. IMPRESSION: Impression: No deep vein thrombosis. This document has been electronically signed by: Maira Valencia MD on 08/22/2024 20:34:02 us Iraj PRUITT CV VASCULAR PROCEDURES Fi nal Result * VICKY SCREENING DIGITAL (05/16/2021 3:42 PM EST) Anatomical Region Laterality Modality Mammography 05/16/2021 1:31 PM EST Narrative 05/16/2021 3:42 PM EST [facility] Diagnostic Imaging Department [address] [place], [place] [id number] Patient: ??LUZMA QUAN ?/Age/Sex: 1955 - 65 - F Unit#: ??[id number] ? Location/Status: ??SPDIMAM/REG CLI ? Mnemonic/Ordering Site: ??DIGSC/SPMAM Ordering Physician: ??MELODY BLANKENSHIP Nadira Vicky Screening Digital - 05/16/21 - 1351 EXAM: Vicky Screening Digital EXAM DATE AND TIME: 05/16/2021 1:51 PM HISTORY: ??Screening. Sister had breast carcinoma age 60. COMPARISON: ??05/07/19, 10/15/17, 03/18/16, 08/25/14 TECHNIQUE: CC and MLO views of both breasts were obtained using full field digital mammography. Bilateral digital breast tomosynthesis was performed in the MLO projection. 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 TISSUE DENSITY: b. There [...] Routine screening mammogram BILATERAL in 1 year. 21652, 00698 3342F, 7043F Dictating Physician: ??AALIYAH PEÑA MD Electronically Signed by: ??AALIYAH PEÑA MD Dic Date/Time: ??05/16/21 1542 Sign date/Time: ??05/16/21 1542 Procedure Note Aaliyah Peña MD - 03/20/2022 [facility] Diagnostic Imaging Department [address] [place] [address] Patient: LUZMA QUAN D.O.B./Age/Sex: 1955 - 65 - F Unit#: [id number] [facility]Ordering Site: [facility] Ordering Physician: MELODY BLANKENSHIP CNM [facility] Screening Digital - 05/16/21 - 1351 EXAM: [facility] Screening Digital EXAM DATE AND TIME: 05/16/2021 1:51 PM HISTORY: Screening. Sister had breast carcinoma age 60. COMPARISON: 05/07/19, 10/15/17, 03/18/16, 08/25/14 TECHNIQUE: CC and MLO views of both breasts were obtained using fullfield digital mammography. Bilateral digital breast tomosynthesis was performedin the MLO projection. Computer aided detection with the [employer] Partneras employed. TISSUE DENSITY: b. There are scattered [...] Routine screening mammogram BILATERAL in 1 year. 06366, 41765 3342F, 7025F Dictating Physician: AALIYAH PEÑA MD Electronically Signed by: AALIYAH PEÑA MD Dic Date/Time: 05/16/211541 Sign date/Time: 05/16/211541 Melody Blankenship [facility] IMG BI PROCEDURES Final Result * [facility] DEXA AXIAL SKELETON (05/16/2021 3:22 PM EST) Anatomical Region Laterality Modality Mammography 05/16/2021 1:32 PM EST Narrative 05/16/2021 3:22 PM EST [facility] Diagnostic Imaging Department [address] [place] [id number] Patient: ??AVELINA,LUZMA ?/Age/Sex: 1955 - 65 - F Unit#: ??[id number] ? Location/Status: ??SPDIMAM/REG CLI ? Mnemonic/Ordering Site: ??MAMDEXAAX/SPMAM Ordering Physician: ??KRZYSZTOFMELODY CNNadira Vicky Dexa Axial Skeleton - 05/16/21 - 145 HISTORY: Post menopausal woman with hormone depletion for screening bone densitometry. The patient is on steroid inhaler. TECHNIQUE: Bone densitometry is performed utilizing dual energy x-ray absorptiometry (DEXA) in the Cupple unit. The lumbar spine is evaluated in [...] bone mineralization in the right proximal femur. 04012 A report detailing these results has been enclosed. Dictating Physician: ??HOUSTON GLOVER MD Electronically Signed by: ??HOUSTON GLOVER MD Dic Date/Time: ??05/16/21 1520 Sign date/Time: ??05/16/21 1522 Procedure Note Houston Glover MD - 03/20/2022 [facility] Diagnostic Imaging Department [address] [place] [id number] Patient: AVELINALUZMA /Age/Sex: 1955 - 65 - F Unit#: [id number] Location/Status: SPDIMAM/REG CLI Mnemonic/Ordering Site: MAMDEXAAX/SPMAM Ordering Physician: MELODY BLANKENSHIP CNM Vicky Dexa Axial Skeleton - 05/16/21 - 145 HISTORY: Post menopausal woman with hormone depletion for screening bone densitometry. The patient is on steroid inhaler. TECHNIQUE: Bone densitometry is performed utilizing dual energy x-ray absorptiometry (DEXA) in the Cupple unit. The lumbar spine isevaluated in the [...] increased bone mineralization in the rightproximal femur. 20206 A report detailing these results has been enclosed. Dictating Physician: HOUSTON GLOVER MD Electronically Signed by: HOUSTON GLOVER MD Dic Date/Time: 05/16/21 1520 Sign date/Time: 05/16/21 1522 Result [facility] Melody Blankenship CNM IMG BI PROCEDURES Final Result * Annual BMP Blood Test (05/10/2021) Pathologist [facility] Annual BMP Blood Test abstracted Result [facility] Historical Provider HEALTH MAINTENANCE Final Result * (ABNORMAL) Lipid panel (05/10/2021) [facility] LDL/HDL Ratio 5(A) 0 - 4 Triglycerides 327(A) 0 - 150 mg/dL Cholesterol 220(A) 0 - 200 mg/dL HDL 44 >=40 mg/dL LDL Cholesterol 111(A) 0 - 100 mg/dL Blood Venous blood specimen / Unknown Result [facility] Historical Provider LAB BLOOD ORDERABLES Salome l Result * Hepatitis C Screening (04/27/2013) [facility] Hepatitis C Screening abstracted Result [facility] Historical Provider HEALTH MAINTENANCE Final Result from Last 3 Months or Most Recently Relevant to Health Maintenance Insurance Member Subscriber Plan / Payer (Ef fective 2019-Present) Name:Luzma Fields Relation to Subscriber:Spouse Name:LUZMA FIELDS Date of :1953 (Home) Address: [address] [place] [address] Payer ID:[id number] Type:Not on file Address: [facility] [address] [place] [phone] Care Teams Director Utilization Management Relationship Specialty Start Date End Date Shivam-Neel Tamez MD [address] [place] [phone] PCP - General Internal Medicine 08/22/24
== END 2024-09-07 09:14 | disposition home or self-care (01) ==
LOC: HO.HPS 08:47
PROVIDERS: PCP Student in an Organized Health Care Education/Training Program; Visit Provider Hospitalist
DX: J45.41 Moderate persistent asthma with (acute) exacerbation (principal); G47.33 Obstructive sleep apnea (adult) (pediatric); F51.01 Primary insomnia; J44.9 Chronic obstructive pulmonary disease, unspecified; K44.9 Diaphragmatic hernia without obstruction or gangrene; R10.12 Left upper quadrant pain
CPT/HCPCS: 99214; G2211

== ENCOUNTER → 2024-09-07 08:46 | Outpatient (BNVA) | payer OTHER, SELFPAY | PROVIDERS: PCP Student in an Organized Health Care Education/Training Program; Visit Provider Hospitalist | DX: J44.9 Chronic obstructive pulmonary disease, unspecified (principal); J45.41 Moderate persistent asthma with (acute) exacerbation; G47.33 Obstructive sleep apnea (adult) (pediatric); F51.05 Insomnia due to other mental disorder; R10.12 Left upper quadrant pain; K44.9 Diaphragmatic hernia without obstruction or gangrene | CPT/HCPCS: 99212 ==

== ENCOUNTER 2024-12-09 10:12 | Outpatient (AMB) | payer OTHER, SELFPAY ==
[2024-12-09 10:17] VITALS: BP 140/78; PULSE 77; O2SAT 98; BMI 28.1
--- NOTE | 2024-12-09 10:17 | A.OFFVIS_ITS ---
Vital Signs 12/09/24 10:17 Height 5 ft 3 in Weight 158 lb 11.725 oz BMI 28.1 BP 140/78 H Blood Pressure Location Lt brachial Position Sitting Pulse 77 Pulse Source Pulse Oximeter Pulse Oximetry (%) 98 Oxygen Delivery Method Room Air Intake Visit Reasons: asthma Allergies pollen extracts Adverse Reaction (Severe, Verified 12/09/24 10:20) Rash Dust Adverse Reaction (Severe, Uncoded 01/08/24 13:37) Rash HPI Comments Details: The patient is a 69-year-old woman with a known history of asthma in addition to obstructive sleep apnea. The patient has been having issues with worsening shortness of breath. She has also complained of chest tightness and wheezing. She does have a Flovent Diskus inhaler which she uses daily. In addition to that she was given a combination inhaler. . The patient is very confused about her inhalers. I try to review the different classifications and why she needs to be on multiple inhalers to treat her asthma. The best option will be to provide her with a simple once a day therapy that will provide her better efficacy and also better adherence. I do believe the Trelegy inhaler be the best option for her. In addition to that she understands that she needs to carry her short-acting beta agonist as needed for when she gets chest tightness and wheezing. The patient does have a history of sleep apnea. She has not been using the CPAP. The patient did not tolerate the CPAP. We did review the sleep study she had many years ago which demonstrated only mild sleep apnea. I did recommend the patient continue positional therapy for now. The patient also has insomnia. She was requesting zolpidem. At this point I do not believe that is opening be a good option for her. I will send a gabapentin for now. This will provide her with a good sleep aid without developing any physical dependency. 01/10/2022 the patient has a telephone visit today. Overall the patient is doing better. She did start taking the Trelegy. it has been much more effective. The patient however has not been rinsing her mouth. Now she has issues with gingiva. She has significant teeth DKA. She is going to start rinsing bed early. In view of the gingival disease I will prescribe her chlorhexidine mouthwash at least she can use it for 14 days in hopes to improve her oral health. In the meantime the patient will continue to take the Trelegy but rinse afterwards. She is sleeping better with the Ambien. The patient understands that he will to monitor closely for any unusual symptoms she also should take medication holidays. She has tried multiple other sleep aids without will affect in this is much better for her. Will continue to monitor her progress. He is waking up rested her [place] score is below 8 which is reassuring. 06/28/2022 the patient is here for a visit. The patient is having worsening shortness of breath and cough. Moderate severity. Feels chest tightness. Denies any sick contacts. She denies any fevers. She has been using her inhalers with partial improvement. She is concerned that her symptoms are going to get worse. She does have a nebulizer but she is not aware where the nebulizer risk. I did recommend she can look for in order to start using nebulizer at will she will provide her some relief. In the meantime she can start a course of antibiotics for chest congestion bronchitis. The patient also can start prednisone is no better. I will send a prescription to the pharmacy. The next visit the patient will come into the office to be evaluated since she has not been seen in person since July of 2021. 08/27/2022 the patient is here for a pulmonary follow-up visit. The patient overall has been feeling better from a respiratory status. She is responding well to the Trelegy inhaler. The patient also has a rescue medication. She has been dealing with her dentition. She knows that she needs to rinse her mouth well after the Trelegy because they can worsen her gingival disease. At this point she will need to have her T taken now and then replaced with a denture. The patient also has been using the Ambien with good effect for sleep. She is also sleeping on her side as far as positional therapy to avoid significant sleep apnea. We did review her last chest x-ray from 2021 demonstrating no acute disease. The patient does not need any additional testing at this time. 10/30/2023 the patient is here for a pulmonary follow-up visit. The patient overall has been doing about the same. Still complains of dyspnea on exertion. She does use her rescue inhaler typically less than 2 times a week. The Trelegy inhaler has been very helpful. The patient has not had any recent imaging studies. The patient does complaint of sinus congestion. She will try a nasal spray to see if we can get her postnasal drip under control. Moderate severity. Otherwise her lungs sound well. The patient's last chest x-ray is back in 2021. No evidence of any active pulmonary disease. If the patient continues to have symptoms be helpful to get a chest x-ray. The patient also has been using Ambien for sleep with good effect. Otherwise patient is doing well she is going to continue the respiratory therapy and have an x-ray whenever possible. The patient follow-up in year's time. She knows about the Ambien. She needs to take breaks from it. If she develops any amnesia she needs to make sure those to tell her providers. 01/08/2024 the patient is here for pulmonary follow-up visit. The patient is still complaining of worsening cough and shortness of breath. She does not feel any better. She continues on the Trelegy inhaler. Although the congestion is still there. She has not had a recent chest x-ray although she was supposed to have 1 that was order. She can have 1 done prior to discharge. In addition to that will treat her for about her bronchitis see if the mucus congestion improves. The patient does state the sometimes she has dyspepsia and sometimes she has food that comes up and she feels like good regurgitates an aspiration to her lungs. Will have her get a barium swallow before the next visit so we can address the question. Once the patient gets chest x-ray is vest abnormal will consider getting further imaging studies including CT scan of the chest to better address the chronic symptoms. 09/07/2024 the patient is here for pulmonary follow-up visit. The patient has been complaining of difficulty swallowing. Reflux disease. She also complains of abdominal discomfort. She did have a barium swallow was very abnormal demonstrating some laryngeal penetration although no overt aspiration in addition to esophagitis and gastritis her hiatal hernia and moderate dysmotility. Will start her on azithromycin for promotility purposes. She needs to be seen by GI in order to undergo endoscopy. She is also having some abdominal discomfort and hopefully they can help with that as well. Meantime she continues with respiratory therapy. She understands the GI issues will ultimately affect her wheezing cough therefore it is important to treated. Will start her on a PPI and she needs to keep her reflux diet going to make sure since she is sleeping elevated. Will follow-up in 3-4 months. While on the azithromycin she is to get an EKG to make sure that it. 12/09/2024 the patient is here for pulmonary follow-up visit. Overall she is doing okay although she still complaining of significant reflux disease and dysphagia. I believe she has not endoscopy scheduled for December. She is going to call and confirm. In the meantime she did not take the omeprazole because she could not take capsules. I did send a Pepcid instead. The patient also has been using Trelegy for her breathing and also her Ventolin inhaler that she uses as needed. But typically less than 2 times a week which is reassuring. She is actually doing well from a respiratory status and she may be to proceed with anesthesia in her endoscopy at this time. The patient did have abnormal barium swallow that does require additional attention at this time. We did talk about the reflux diet and also making sure that she is elevated and she understands that the reflux disease can impact her respiratory capacity. [facility] Medical History (Updated 09/07/24 @ 09:28 by Christopher Pickens MD) Abdominal pain Hiatal hernia Neck pain Asthma-COPD overlap syndrome COPD (chronic obstructive pulmonary disease) URI (upper respiratory infection) Insomnia PRIMITIVO (obstructive sleep apnea) Asthma Social History Patient Tobacco Use Status: Never used Tobacco Review of Systems Const Reports daytime sleepiness, Reports difficulty sleeping, Denies night sweats and Denies snoring ENT Reports bleeding gums, Denies change in voice, Reports dental pain, Reports lip swelling, Denies mouth pain, Reports nasal congestion, Reports nasal discharge, Reports nasal obstruction and Denies tongue swelling Card Denies chest pain and Denies dyspnea Resp Reports chest congestion, Reports cough, Denies dyspnea, Denies snoring and Reports wheezing GI Denies abdominal pain Musc Denies no additional complaints Neuro Denies Neuro-related abnormal movements Psych Denies no additional complaints Gamal/Lymph Denies easy bleeding and Denies lymphadenopathy Aller/Immun Reports lip swelling, Denies tongue swelling and Reports wheezing Physical Exam Vital Signs: Last Vital Signs Pulse 77 12/09/24 10:17 BP 140/78 H 12/09/24 10:17 Pulse Ox 98 12/09/24 10:17 Oxygen Delivery Method Room Air 12/09/24 10:17 BMI result Body Mass Index 28.1 Const General: alert HEENT General nose exam: Abnormal external nose present and Nasal discharge present Eyes Pupils: Equal, round and reactive pupils present Neck Neck: Yes normal visual inspection, Yes full ROM and Yes no lymphadenopathy Chest Chest palpation & inspection: normal inspection of the chest Resp Auscultation: diminished lung sounds Cardio Rate: regular rate Rhythm: regular rhythm Heart sounds: S1 normal heart sound present and S2 normal heart sound present GI Palpation (GI): Soft to palpation and nontender Auscultation: normal bowel sounds General: Yes no CVA tenderness Back/Spine/Pelvis Back: no CVA tenderness Skin General skin exam: rashes and/or lesions noted Neuro Cranial nerves: Yes Equal, round and reactive pupils present Assessment & Plan Assessment & Plan (1) Asthma: Code(s): J45.909 - Unspecified asthma, uncomplicated Category: Medical Qualifiers: Asthma complication type: with acute exacerbation Asthma persistence: persistent Asthma severity: moderate Qualified Code(s): J45.41 - Moderate persistent asthma with (acute) exacerbation (2) PRIMITIVO (obstructive sleep apnea): Comment: not on PAP therapy Code(s): G47.33 - Obstructive sleep apnea (adult) (pediatric) Category: Medical (3) Insomnia: Code(s): G47.00 - Insomnia, unspecified Category: Medical Qualifiers: Insomnia type: primary Qualified Code(s): F51.01 - Primary insomnia (4) Asthma-COPD overlap syndrome: Code(s): J44.9 - Chronic obstructive pulmonary disease, unspecified Category: Medical (5) Hiatal hernia: Code(s): K44.9 - Diaphragmatic hernia without obstruction or gangrene Category: Medical (6) Abdominal pain: Code(s): R10.9 - Unspecified abdominal pain Category: Medical Qualifiers: Abdominal location: left upper quadrant Qualified Code(s): R10.12 - Left upper quadrant pain Plan Continue Trelegy, needs to rinse Nebulize therapy with albuterol short-acting beta agonist as needed positional therapy for her sleep apnea. fluticasone nasal spray barium swallow, abnormal, needs an EGD and also complaining of abdominal pain. Awaiting EGD start Pepcid continue Ambien for sleep follow-up in 6 months Medications: New famotidine (Pepcid) 40 mg PO BEDTIME 30 tabs 6RF 30 days albuterol sulfate 90 mcg/actuation (Ventolin HFA) 2 puffs inhalation QID PRN 18 grams 11RF shortness of breath or wheezing 30 days Coding Level of Care Code Est Pt Level 4 (08320) Complex EM visit Add On G2211 Diagnoses Moderate persistent asthma with acute exacerbation J45.41 Asthma complication type: with acute exacerbation Asthma persistence: persistent Asthma severity: moderate PRIMITIVO (obstructive sleep apnea) G47.33 Primary insomnia F51.01 Insomnia type: primary Asthma-COPD overlap syndrome J44.9 Hiatal hernia K44.9 Left upper quadrant abdominal pain R10.12 Abdominal location: left upper quadrant Time Spent (min) 17
--- OUTSIDE RECORDS SUMMARY | 2024-12-09 12:27 | XMS_ITS | Clinical Summary ---
Author Organization [facility] Address [address] [place] [address] Phone Care Team Providers Care Environmental Services Aide Name Role Phone Neel Krishnamurthy MD Primary Care Pr ovider Allergies Active Allergy Reactions Criticality Noted Date Comments House Dust 08/07/2017 Medications simvastatin (ZOCOR) 40 mg tablet TAKE 1/2 TABLET BY MOUTH EVERY DAY AT BEDTIME 12/07/19 22 Active oxyCODONE (ROXICODONE) 10 mg immediate release tablet Take 1 tablet (10mg ) by mouth every 12 hours for 2 weeks, then take 1/2 tablet (5mg ) by mouth every 12 hours for 2 weeks. Contact PCP office when due for next refill of tapering dose. 06/27/19 22 Active levothyroxine (SYNTHROID, LEVOTHROID) 125 mcg tablet Take 1 tablet (125 mcg total) by mouth 1 (one) time each day. 12/07/19 22 Active lanolin 50 % ointment Apply to lips QID PRN 01/13/20 20 Active ketoconazole (NIZORAL) 2 % shampoo APPLY 3 TIMES A WEEK TO THE SCALP, LEAVE IT ON FOR 2 MINUTES AND THEN RINSE WITH WATER. 04/12/19 22 Active gabapentin (NEURONTIN) 300 mg capsule One at bedtime for insomnia, perscribed by pulm 05/10/19 22 Active diclofenac (VOLTAREN) 1 % topical gel APPLY TOPICALLY TO AFFECTED AREA ON BACK ONCE DAILY 02/26/20 22 Active clotrimazole-b etamethasone (LOTRISONE) 1-0.05 % cream Apply topically 2 times daily. 09/21/20 20 Active citalopram (CeleXA) 10 mg tablet Take 1 tablet (10 mg total) by mouth 1 (one) time each day. 01/24/20 Active cetirizine (ZyrTEC) 10 mg tablet Take 1 Tab by mouth daily for 360 days. 08/20/19 Active atenoloL (TENORMIN) 25 mg tablet Take 1 tablet (25 mg total) by mouth 1 (one) time each day. 12/07/19 Active albuterol HFA (PROAIR HFA ; PROVENTIL HFA ; VENTOLIN HFA) 90 mcg/actuation inhaler Take 2 Puffs by mouth every 6 hours as needed for Cough or Wheezing for up to 30 days. 12/17/19 Active albuterol 2.5 mg /3 mL (0.083 %) nebulizer solution Take 1 Vial by nebulization every 4 hours as needed for Wheezing for up to 30 days. 07/03/19 Active acetaminophen (TYLENOL) 500 mg tablet TAKE 1 TAB BY MOUTH 3 TIMES DAILY NEEDED FOR PAIN. 08/18/19 Active BISACODYL ORAL Take 2 tablets by mouth right before your first dose of liquid prep. 11/30/19 22 Active amLODIPine (NORVASC) 5 mg tablet Take 1 tablet (5 mg total) by mouth 1 (one) time each day. 30 each 10/10/19 25 Active losartan (COZAAR) 50 mg tablet Take 1 tablet (50 mg total) by mouth 1 (one) time each day. 30 each 10/19/19 25 026 Active melatonin 1 mg tablet,chewabl e Chew 1 tablet at bedtime as needed (sleep). 30 tablet 10/19/19 25 Active pantoprazole (PROTONIX) 40 mg EC tablet Take 1 tablet (40 mg total) by mouth 2 (two) times a day. Do not crush, chew, or split. 180 each 11/19/19 25 025 Active omeprazole OTC (PriLOSEC OTC) 20 mg EC tablet Take 2 tablets (40 mg total) by mouth 1 (one) time each day. Do not crush, chew, or split. 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 Home Polysomnogram: Date 12/01/2017; AHI 10, Unclassified [...] Encounters Date Type Department Care Team Description 11/26/2024 11:05 AM EDT - 11/26/2024 11:59 PM EDT Hospital Encounter [facility] Xray [address] [place] [phone] Abdominal bloating Discharge Disposition: Home or Self Care 11/18/2024 1:40 PM EDT Consult Gastroenterology [facility] [address] [phone] Mica Morfin NP Esophageal dysphagia (Primary Dx); Abdominal bloating; Chronic erosive gastritis; Elevated alkaline phosphatase level 11/18/2024 Telephone Gastroenterology [facility] [address] [facility] [address] [place] [phone] Mica Morfin NP 10/29/2024 11:29 AM EDT - 10/29/2024 4:25 PM EDT [facility] [address] [place] [address] Robert Man MD Precordial chest pain (Primary Dx); Hypertension, unspecified type Discharge Disposition: Home or Self Care 10/18/2024 7:19 AM EDT - 10/18/2024 10:48 AM EDT [facility] [address] [place] [phone] Raven Washington MD Landry, Jonathan P, MD Hypertension, unspecified type (Primary Dx); Esophagitis Discharge Disposition: Home or Self Care 10/10/2024 10:01 AM EDT - 10/10/2024 10:43 AM EDT [facility] [address] [place] [address] Robert Man MD Asymptomatic hypertension (Primary Dx) Discharge Disposition: Home or Self Care 10/09/2024 10:45 AM EDT - 10/09/2024 5:01 PM EDT [facility] [address] [place] [phone] Preston Hoyos MD Hypertension, unspecified type (Primary Dx) Discharge Disposition: Home or Self Care from [...] = 0.6 oz pur e alcohol) Comments No Sex and Gender Information Value Date Recorded Sex Assigned at Not on file Legal Sex Female 3:00 AM EST Gender Identity Not on file Sexual Orientation Not on file Obstetrics History Last Filed Vital Signs Vital Sign Reading Time Taken Comments Blood Pressure 120/68 11/18/2024 1:51 PM EDT Pulse 80 11/18/2024 1:51 PM EDT Temperature 37 C (98.6 F) 10/29/2024 2:18 PM EDT Respiratory Rate 16 10/29/2024 2:18 PM EDT Oxygen Saturation 98% 11/18/2024 1:51 PM EDT Inhaled Oxygen Concentration - - Weight 70.8 kg (156 lb) 11/18/2024 1:51 PM EDT Height 160 cm (5' 3 ) 11/18/2024 1:51 PM EDT Body Mass Index 27.63 11/18/2024 1:51 PM EDT Plan of Treatment Upcoming Encounters Date Type Department Care Team (Late st Contact Info) Description 01/26/2025 12:30 PM EDT Appointment [facility] Endoscopy [address] [place] [phone] Alfredo Kulkarni MD [address] [place] [phone] Health Maintenance Due Date Last Done Comments Pneumococcal Vaccine: 50+ Years (1 of 2 - PCV) 1972 Zoster Vaccines (1 of 2) 10/12/2003 RSV Immunization Adult Patients (1 - Risk 60-74 years 1-dose series) 2013 Colorectal Cancer Screening: Colonoscopy 03/03/2022 Falls Risk Assessment 03/03/2022 Medicare Annual Wellness Visit 03/03/2022 Social Influencers of Health Screening 03/03/2022 DTaP,Tdap,and Td Vaccines (2 - Td or Tdap) 10/05/2022 10/05/2012 Breast Cancer Screening 05/16/2023 05/16/2021, 05/07 Depression Screening 03/31/2024 COVID-19 Vaccine ( season) 2024 Influenza Vaccine (#1) 2024 Hypertension/CHF/CAD Annual BMP Blood Test 10/29/2025 10/29/2024, 10/18/2024, 10/09/2024, Additional history exists Cholesterol Screening (Lipid Panel) 05/10/2026 05/10/2021 Osteoporosis [...] 20 months Aged Out No longer eligible based on patient's age to complete this topic Varicella Vaccines Aged Out No longer eligible based on patient's age to complete this topic Procedures Procedure Name Priority Date/Time Associated Diagnosis Comments XR ABDOMEN 1 VIEW Routine 11/26/2024 11: 16 AM EDT Abdominal bloating ECG ANNOTATED 10/30/2024 XR CHEST 2 VIEWS STAT 10/29/2024 2:05 PM EDT CBC WITH AUTO DIFFERENTIAL STAT 10/29/2024 1:35 PM EDT COMPREHENSIVE METABOLIC PANEL STAT 10/29/2024 1:35 PM EDT CBC AND DIFFERENTIAL STAT 10/29/2024 1:35 PM EDT TROPONIN I HIGH SENSITIVITY Timed 10/29/2024 1:35 PM EDT ECG 12-LEAD STAT 10/29/2024 1:14 PM EDT PITTMAN URINE CULTURE TUBE STAT 10/29/2024 11:42 AM EDT URINALYSIS WITH REFLEX MICROSCOPIC AND CULTURE STAT 10/29/2024 11:42 AM EDT URINALYSIS WITH REFLEX MICROSCOPIC AND CULTURE STAT 10/29/2024 11:42 AM EDT CULTURE URINE STAT 10/29/2024 11:42 AM EDT ECG ANNOTATED 10/20/2024 CBC WITH AUTO DIFFERENTIAL STAT 10/18/2024 3:52 AM EDT B-TYPE NATRIURETIC PEPTIDE STAT 10/18/2024 3:52 AM EDT MAGNESIUM STAT 10/18/2024 3:52 AM EDT LIPASE STAT 10/18/2024 3:52 AM EDT COMPREHENSIVE METABOLIC PANEL STAT 10/18/2024 3:52 AM EDT CBC AND DIFFERENTIAL STAT 10/18/2024 3:52 AM EDT TROPONIN I HIGH SENSITIVITY Timed 10/18/2024 3:52 AM EDT ECG 12-LEAD STAT 10/18/2024 3:41 AM EDT ECG ANNOTATED 2024 TROPONIN I HIGH SENSITIVITY STAT 10/09/2024 2:09 PM EDT CBC WITH AUTO DIFFERENTIAL STAT 10/09/2024 12:30 PM EDT TROPONIN I HIGH SENSITIVITY STAT 10/09/2024 12:30 PM EDT BASIC METABOLIC PANEL STAT 10/09/2024 12:30 PM EDT CBC AND DIFFERENTIAL STAT 10/09/2024 12:30 PM EDT ECG 12-LEAD STAT 10/09/2024 11:[address] HEAD WO CONTRAST STAT 10/09/2024 1 1:37 AM EDT [facility] SCREENING DIGITAL Routine 05/16/2021 3:42 PM EST Encounter for screening mammogram for malignant neoplasm of breast [facility] DEXA AXIAL SKELETON Routine 05/16/2021 3:22 PM EST Encounter for screening for osteoporosis LIPID PANEL Routine 05/10/2021 HEPATITIS C SCREENING Routine 04/27/2013 from Last 3 Months or Most Recently Relevant to Health Maintenance Results * XR Abdomen 1 View (11/26/2024 11:16 AM EDT) Anatomical Region Laterality Modality Body Radiographic Marti ging 11/26/2024 11:2 3 AM EDT Impressions 11/26/2024 11:24 AM EDT Nonobstructive bowel gas pattern. The volume of fecal material is not unusually increased. 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 Code 90569 -------- FINAL REPORT -------- Dictated By: Nando Eubanks Dictated Date: 11/26/2024 11:23 ET Assigned Physician: Nando Eubanks Reviewed and Electronically Signed By: Nando Eubanks Signed Date: 11/26/2024 11:24 ET Workstation ID: [id number] Transcribed By: Self Edit Transcribed Date: 11/26/2024 11:23 ET Narrative 11/26/2024 11:24 AM EDT HISTORY: The patient is a 69-year-old female with abdominal bloating. FINDINGS: Supine radiographs of the abdomen demonstrate 6 nonrib-bearing lumbar vertebrae. The bowel gas pattern is nonobstructive. The volume of fecal material is not unusually increased. No mass or radiopaque calculus is seen. Procedure Note Nando Eubanks MD - 11/26/2024 HISTORY: The patient is a 69-year-old female with abdominal bloating. FINDINGS: Supine radiographs of the abdomen demonstrate 6 nonrib-bearinglumbar vertebrae. The bowel gas pattern is nonobstructive. The volume offecal material is not unusually increased. No mass or radiopaque calculusis seen. IMPRESSION: Nonobstructive bowel gas pattern. The volume of fecal material is notunusually increased. 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 Code 63162 -------- FINAL REPORT -------- Dictated By: Nando Eubanks Dictated Date: 11/26/2024 11:23 ET Assigned Physician: Nando Eubanks Reviewed and Electronically Signed By: Nando Eubanks Signed Date: 11/26/2024 11:24 ET Workstation ID: [id number] Transcribed By: Self Edit Transcribed Date: 11/26/2024 11:23 ET Mica Morfin NP IMG XR PROCEDURES Final Result * ECG-Annotated (10/30/2024) Only the most recent of3 resultswithin the time period is included. us Provider Onbase ECG ORDERABLES Final Result * XR Chest 2 Views (10/29/2024 2:05 PM EDT) Anatomical Region Laterality Modality Body Radiographic Marti ging 10/29/2024 2:40 PM EDT Impressions 10/29/2024 2:41 PM EDT FINDINGS/IMPRESSION: No consolidation or congestive heart failure. Mild degenerative osseous changes. No pneumothorax. -------- FINAL REPORT -------- Dictated By: Kelvin Jimenez Dictated Date: 10/29/2024 14:40 ET Assigned Physician: Kelvin Jimenez Reviewed and Electronically Signed By: Kelvin Jimenez Signed Date: 10/29/2024 14:41 ET Workstation ID: [id number] Transcribed By: Self Edit Transcribed Date: 10/29/2024 14:40 ET Narrative 10/29/2024 2:41 PM EDT XR CHEST 2 VIEWS INDICATION: Chest pain clinical question pneumonia pneumothorax, left TECHNIQUE: XR CHEST 2 VIEWS COMPARISON: No priors available. Procedure Note Kelvin Jimenez MD - 10/29/2024 XR CHEST 2 VIEWS INDICATION: Chest pain clinical question pneumonia pneumothorax, left TECHNIQUE: XR CHEST 2 VIEWS COMPARISON: No priors available. IMPRESSION: FINDINGS/IMPRESSION: No consolidation or congestive heart failure. Milddegenerative osseous changes. No pneumothorax. -------- FINAL REPORT -------- Dictated By: Kelvin Jimenez Dictated Date: 10/29/2024 14:40 ET Assigned Physician: Kelvin Jimenez Reviewed and Electronically Signed By: Kelvin Jimenez Signed Date: 10/29/2024 14:41 ET Workstation ID: [id number] Transcribed By: Self Edit Transcribed Date: 10/29/2024 14:40 ET Robert Man MD IMG XR PROCEDURES Final Result * Troponin I high sensitivity (10/29/2024 1:35 PM EDT) Only the most recent of4 resultswithin the time period is included. High Sensitivity Troponin I 6 <=54 ng/L LAB CHEMISTRY METHOD 10/29/2024 2:50 PM EDT [facility] Blood Venous blood specimen / Unknown Venipuncture / Unknown 10/29/2024 1:35 PM EDT 10/29/2024 2:16 PM EDT Narrative [facility] - 10/29/2024 2:50 PM EDT High levels of biotin in samples may falsely decrease hsTroponin values. Use caution when interpreting hsTroponin results in patients taking biotin who exhibit renal impairment (eGFR <60) or in patients taking more than 20 mg/day of biotin. Robert Man MD LAB BLOOD ORDERABLES Final Resu lt [facility] [address] [place] [address], * (ABNORMAL) CBC auto differential (10/29/2024 1:35 PM EDT) Only the most recent of3 resultswithin the time period is included. WBC 9.7 4.8 - 10.8 K/mcL LAB HEMETOLOGY METHOD 10/29/2024 2:25 PM EDT [facility] RBC 5.00(H) 3.80 - 4.80 M/mcL LAB HEMETOLOGY METHOD 10/29/2024 2:25 PM EDT [facility] Hemoglobin 15.1 11.5 - 16.0 g/dL LAB HEMETOLOGY METHOD 10/29/2024 2:25 PM EDT [facility] Hematocrit 44.1 35.0 - 47.0 % LAB HEMETOLOGY METHOD 10/29/2024 2:25 PM EDT [facility] MCV 87.7 79.0 - 98.0 FL LAB HEMETOLOGY METHOD 10/29/2024 2:25 PM EDT [facility] MCH 30.0 27.0 - 32.0 pcg LAB HEMETOLOGY METHOD 10/29/2024 2:25 PM EDT [facility] MCHC 34.2 32.0 - 37.0 g/dL LAB HEMETOLOGY METHOD 10/29/2024 2:25 PM EDT [facility] RDW 12.5 11.0 - 15.0 % LAB HEMETOLOGY METHOD 10/29/2024 2:25 PM EDT [facility] Platelets 245 130 - 400 K/mcL LAB HEMETOLOGY METHOD 10/29/2024 2:25 PM EDT [facility] MPV 11.9(H) 7.0 - 11.0 FL LAB HEMETOLOGY METHOD 10/29/2024 2:25 PM EDT [facility] NRBC 0.0 <1.0 % LAB HEMETOLOGY METHOD 10/29/2024 2:25 PM EDT [facility] NRBC Absolute 0.00 <0.10 K/mcL LAB HEMETOLOGY METHOD 10/29/2024 2:25 PM EDT [facility] Neutrophils Relative 81.7 % LAB HEMETOLOGY METHOD 10/29/2024 2:25 PM EDT [facility] Lymphocytes Relative 11.0 % LAB HEMETOLOGY METHOD 10/29/2024 2:25 PM EDT [facility] Monocytes Relative 6.0 % [facility] Eosin[facility] 0.6 % LAB HEMETOLOGY METHOD 10/29/2024 2:25 PM EDT [facility] Basophils Relative 0.2 % LAB HEMETOLOGY METHOD 10/29/2024 2:25 PM EDT [facility] Immature Granulocytes Relative 0.5 % LAB [facility]OLOGY [facility] Neutrophils Absolute 7.96(H) 1.50 - 7.00 K/mcL LAB [facility]ETOLOGY [facility]24 [facility] Lymphocytes Absolute 1.07 1.00 - 5.00 K/mcL LAB HEMETOLOGY METHOD 10/29/2024 2:25 PM EDT [facility] Monocytes Absolute 0.58 0.20 - 1.00 K/mcL LAB HEMETOLOGY METHOD 10/29/2024 2:25 PM EDT [facility] Eosinophils Absolute 0.06 0.00 - 0.50 K/mcL LAB HEMETOLOGY METHOD 10/29/2024 2:25 PM EDT [facility] Basophils Absolute 0.02 0.00 - 0.20 K/mcL LAB HEMETOLOGY METHOD 10/29/2024 2:25 PM EDT [facility] Immature Granulocytes Absolute 0.05(H) 0.00 - 0.03 K/mcL LAB HEMETOLOGY METHOD 10/29/2024 2:25 PM EDT [facility] Blood Venous blood specimen / Unknown Venipuncture / Unknown 10/29/2024 1:35 PM EDT 10/29/2024 2:16 PM EDT us Robert Man MD LAB BLOOD ORDERABLES Final Resu lt [facility] [address] [place] [address], [place] [phone] * (ABNORMAL) Comprehensive metabolic panel (10/29/2024 1:35 PM EDT) Only the most recent of2 resultswithin the time period is included. Sodium 138 133 - 145 mmol/L LAB CHEMISTRY METHOD 10/29/2024 3:23 PM [facility] Potassium 4.5 3.5 - 5.5 mmol/L LAB CHEMISTRY METHOD 10/29/2024 3:23 PM [facility] Comment:Hemolysis present Chloride 107 96 - 110 mmol/L LAB CHEMISTRY METHOD 10/29/2024 3:23 PM [facility] CO2 26 21 - 32 mmol/L LAB CHEMISTRY METHOD 10/29/2024 3:23 PM [facility] Anion Gap 5 3 - 11 LAB CHEMISTRY METHOD 10/29/2024 3:23 PM [facility] Glucose 90 70 - 100 mg/dL LAB CHEMISTRY METHOD 10/29/2024 3:23 PM [facility] BUN 11 5 - 25 mg/dL LAB CHEMISTRY METHOD 10/29/2024 3:23 PM [facility] Creatinine 0.80 0.50 - 1.10 mg/dL LAB CHEMISTRY METHOD 10/29/2024 3:23 PM T [facility] eGFR 79 >=60 mL/min/1. 73m2 LAB CHEMISTRY METHOD 10/29/2024 3:23 PM [facility] Comment:Calculation based on the Chronic Kidney Disease Epidemiology Collaboration (CKD-EPI) equation refit without adjustment for race. BUN/Creatinine Ratio 13.8 LAB CHEMISTRY METHOD 10/29/2024 3:23 PM EDT [facility] Calcium 9.5 8.5 - 10.5 mg/dL LAB CHEMISTRY METHOD 10/29/2024 3:23 PM [facility] AST (SGOT) 48(H) 10 - 42 unit/L LAB CHEMISTRY METHOD 10/29/2024 3:23 PM [facility] Comment:Hemolysis present ALT (SGPT) 35 10 - 60 unit/L LAB CHEMISTRY METHOD 10/29/2024 3:23 PM [facility] Alkaline Phosphatase 134(H) 42 - 121 unit/L LAB CHEMISTRY METHOD 10/29/2024 3:23 PM [facility] Total Protein 8.1(H) 6.0 - 8.0 g/dL LAB CHEMISTRY METHOD 10/29/2024 3:23 PM [facility] Albumin 4.1 3.2 - 5.0 g/dL LAB CHEMISTRY METHOD 10/29/2024 3:23 PM [facility] Total Bilirubin 0.6 0.0 - 1.4 mg/dL LAB CHEMISTRY METHOD 10/29/2024 3:23 PM [facility] Blood Venous blood specimen / Unknown Venipuncture / Unknown 10/29/2024 1:35 PM EDT 10/29/2024 2:16 PM EDT us Robert Man MD LAB BLOOD ORDERABLES Final Resu lt [facility] [address] [place] [address], [place] [phone] * ECG 12 lead (10/29/2024 1:14 PM EDT) Only the most recent of3 resultswithin the time period is included. Pathologist [facility] Ventricular Rate ECG 79 BPM GEMUSE Atrial Rate 79 BPM GEMUSE P-R Interval 158 ms GEMUSE QRS Duration 82 ms GEMUSE Q-T Interval 404 ms GEMUSE QTc 463 ms GEMUSE P Wave Weston 48 degrees GEMUSE R Weston 20 degrees GEMUSE T Weston 25 degrees GEMUSE ECG Interpretation Normal sinus rhythm Normal ECG When compared with ECG of 18-OCT-2024 03:41, No significant change was found Confirmed by Cheryl FATIMA YUFENG ([id number]) on 10/29/2024 4:07:28 PM GEMUSE 10/29/2024 1:14 PM EDT 10/29/2024 4:07 PM EDT us Robert Man MD ECG ORDERABLES Final Result GEMUSE * (ABNORMAL) Urinalysis with reflex microscopic and culture (10/29/2024 11:42 AM EDT) [facility] Specific [place] Urine 1.008 1.003 - 1.030 LAB URINALYSIS - AUTOMATED METHOD 10/29/2024 12:06 PM EDT [facility] pH, Urine 7.0 5.0 - 8.0 pH LAB URINALYSIS - AUTOMATED METHOD 10/29/2024 12:06 PM EDT [facility] Leukocytes, Urine Trace(A) Negative LAB URINALYSIS - AUTOMATED METHOD 10/29/2024 12:06 PM T [facility] Nitrite, Urine Negative Negative LAB URINALYSIS - AUTOMATED METHOD 10/29/2024 12:06 PM EDT [facility] Protein, Urine Negative <=Trace mg/dL LAB URINALYSIS - AUTOMATED METHOD 10/29/2024 12:06 PM [facility] Glucose, Urine Negative Negative mg/dL LAB URINALYSIS - AUTOMATED METHOD 10/29/2024 12:06 PM [facility] Ketones, Urine Negative Negative mg/dL LAB URINALYSIS - AUTOMATED METHOD 10/29/2024 12:06 PM [facility] Urobilinogen, Urine 0.2 0.2 - 1.0 mg/dL LAB URINALYSIS - AUTOMATED METHOD 10/29/2024 12:06 PM [facility] Bilirubin, Urine Negative Negative LAB URINALYSIS - AUTOMATED METHOD 10/29/2024 12:06 PM [facility] Blood, Urine Negative Negative LAB URINALYSIS - AUTOMATED METHOD 10/29/2024 12:06 PM [facility] RBC, Urine 0.5 0 - 4 /HPF LAB URINALYSIS - AUTOMATED METHOD 10/29/2024 12:06 PM [facility] WBC, Urine 0.1 0 - 4 /HPF LAB URINALYSIS - AUTOMATED METHOD 10/29/2024 12:06 PM [facility] Squamous Epithelial, Urine 14 0 - 60 /LPF LAB URINALYSIS - AUTOMATED METHOD 10/29/2024 12:06 PM [facility] Bacteria, Urine Negative Negative /HPF LAB URINALYSIS - AUTOMATED METHOD 10/29/2024 12:06 PM [facility] Hyaline Casts, Urine 0.4 0 - 3 /LPF LAB URINALYSIS - AUTOMATED METHOD 10/29/2024 12:06 PM [facility] Urine Urine specimen obtained by clean catch procedure / Unknown Non-blood Collection / Unknown 10/29/2024 11:42 AM EDT 10/29/2024 11:51 AM EDT us Robert Man MD LAB URINE ORDERABLES Final Resu lt [facility] [address] [place] [address], [place] [phone] * Pittman urine culture tube (10/29/2024 11:42 AM EDT) Extra Tube Hold for add-ons. 10/29/2024 1:02 PM EDT [facility] Comment:Auto resulted. Urine Urine specimen obtained by clean catch procedure / Unknown Non-blood Collection / Unknown 10/29/2024 11:42 AM EDT 10/29/2024 11:51 AM EDT Robert Man MD LAB URINE ORDERABLES Final Resu lt Performing Organization Address City/[facility]/ZIP Co de Phone Number [facility] [address] [place] [address], [place] [phone] * Culture urine (10/29/2024 11:42 AM EDT) [facility] Culture, Urine No growth 10/30/2024 9:42 AM EDT [facility] Urine Urine specimen obtained by clean catch procedure / Unknown Non-blood Collection / Unknown 10/29/2024 11:42 AM EDT 10/29/2024 12:06 PM EDT Robert Man MD LAB MICROBIOLOGY - GENERAL ORDE RABLES Final Result [facility] [address] [place] [address], [place] [phone] * B-type natriuretic peptide (10/18/2024 3:52 AM EDT) BNP 11 <=100 pcg/mL LAB CHEMISTRY METHOD 10/18/2024 4:51 AM EDT [facility] Blood Venous blood specimen / Unknown Venipuncture / Unknown 10/18/2024 3:52 AM EDT 10/18/2024 4:14 AM EDT Robin Terrell MD LAB BLOOD ORDERABLES Salome l Result Performing Organization Address [facility]/ZIP Co de Phone Number [facility] [address] [place] [address], [place] [phone] * Magnesium (10/18/2024 3:52 AM EDT) [facility] Magnesium 2.3 1.9 - 2.6 mg/dL LAB CHEMISTRY METHOD 10/18/2024 4:40 AM EDT [facility] Blood Venous blood specimen / Unknown Venipuncture / Unknown 10/18/2024 3:52 AM EDT 10/18/2024 4:14 AM EDT Robin Terrell MD LAB BLOOD ORDERABLES Salome l Result Performing Organization Address [facility] Co de Phone Number [facility] [address] [place] [address], [place] [phone] * Lipase (10/18/2024 3:52 AM EDT) [facility] Lipase 35 13 - 75 unit/L LAB CHEMISTRY METHOD 10/18/2024 4:40 AM EDT [facility] Blood Venous blood specimen / Unknown Venipuncture / Unknown 10/18/2024 3:52 AM EDT 10/18/2024 4:14 AM EDT Robin Terrell MD LAB BLOOD ORDERABLES Salome l Result Performing Organization Address City/[facility]/ZIP Co de Phone Number [facility] [address] [place] [address], [place] [phone] * Basic metabolic panel (10/09/2024 12:30 PM EDT) [facility] Sodium 139 133 - 145 mmol/L LAB CHEMISTRY METHOD 10/09/2024 1:03 PM [facility] Potassium 4.4 3.5 - 5.5 mmol/L LAB CHEMISTRY METHOD 10/09/2024 1:03 PM [facility] Chloride 108 96 - 110 mmol/L LAB CHEMISTRY METHOD 10/09/2024 1:03 PM [facility] CO2 28 21 - 32 mmol/L LAB CHEMISTRY METHOD 10/09/2024 1:03 PM [facility] Anion Gap 3 3 - 11 LAB CHEMISTRY METHOD 10/09/2024 1:03 PM [facility] Glucose 97 70 - 100 mg/dL LAB CHEMISTRY METHOD 10/09/2024 1:03 PM [facility] BUN 18 5 - 25 mg/dL LAB CHEMISTRY METHOD 10/09/2024 1:03 PM [facility] Creatinine 0.86 0.50 - 1.10 mg/dL LAB CHEMISTRY METHOD 10/09/2024 1:03 PM [facility] eGFR 73 >=60 mL/min/1. 73m2 LAB CHEMISTRY METHOD 10/09/2024 1:03 PM [facility] Comment:Calculation based on the Chronic Kidney Disease Epidemiology Collaboration (CKD-EPI) equation refit without adjustment for race. BUN/Creatinine Ratio 20.9 LAB CHEMISTRY METHOD 10/09/2024 1:03 PM [facility] Calcium 9.8 8.5 - 10.5 mg/dL LAB CHEMISTRY METHOD 10/09/2024 1:03 PM [facility] Blood Venous blood specimen / Unknown Venipuncture / Unknown 10/09/2024 12:30 PM EDT 10/09/2024 12:36 PM EDT us Preston Hoyos MD LAB BLOOD ORDERABLES Final Result [facility] [address] [place] [address], * CT Head wo Contrast (10/09/2024 11:37 AM EDT) Anatomical Region Laterality Modality Head and Neck Computed Tomogra phy 10/09/2024 12:2 3 PM EDT Impressions 10/09/2024 12:26 PM EDT No acute intracranial findings. -------- FINAL REPORT -------- Dictated By: Ananda Donaldson Dictated Date: 10/09/2024 12:23 ET Assigned Physician: Ananda Donaldson Reviewed and Electronically Signed By: Ananda Donaldson Signed Date: 10/09/2024 12:26 ET Workstation ID: [id number] Transcribed By: Self Edit Transcribed Date: 10/09/2024 12:23 ET Narrative 10/09/2024 12:26 PM EDT PROCEDURE: Noncontrast head CT. HISTORY: Headache, intracranial hemorrhage suspected. COMPARISON: 04/12/2023.3 TECHNIQUE: Noncontrast head CT with coronal and sagittal reformats. Dose length product: 1070 mGy-cm. FINDINGS: BRAIN: No hemorrhage, edema, mass, or extra-axial fluid collection. No CT evidence of an acute large vessel infarct. Ventricles and sulci are age commensurate. Possible small area of linear encephalomalacia in the deep left frontal white matter adjacent to the anterior horn of the left lateral ventricle. ORBITS: Normal. SINUSES/MASTOIDS: Anterior clinoids are pneumatized and communicate with the sphenoid sinuses. CALVARIUM: Mild hyperostosis frontalis interna. OTHER: The skull base soft tissues are normal. Procedure Note Ananda Donaldson MD - 10/09/2024 PROCEDURE: Noncontrast head CT. HISTORY: Headache, intracranial hemorrhage suspected. COMPARISON: 04/12/2023.3 TECHNIQUE: Noncontrast head CT with coronal and sagittal reformats. Dose length product: 1070 mGy-cm. FINDINGS: BRAIN: No hemorrhage, edema, mass, or extra-axial fluid collection. No CTevidence of an acute large vessel infarct. Ventricles and sulci are agecommensurate. Possible small area of linear encephalomalacia in the deepleft frontal white matter adjacent to the anterior horn of the leftlateral ventricle. ORBITS: Normal. SINUSES/MASTOIDS: Anterior clinoids are pneumatized and communicate withthe sphenoid sinuses. CALVARIUM: Mild hyperostosis frontalis interna. OTHER: The skull base soft tissues are normal. IMPRESSION: No acute intracranial findings. -------- FINAL REPORT -------- Dictated By: Ananda Donaldson Dictated Date: 10/09/2024 12:23 ET Assigned Physician: Ananda Donaldson Reviewed and Electronically Signed By: Ananda Donaldson Signed Date: 10/09/2024 12:26 ET Workstation ID: [id number] Transcribed By: Self Edit Transcribed Date: 10/09/2024 12:23 ET us Preston Hoyos MD IMG CT PROCEDURES Final Res ult * VICKY SCREENING DIGITAL (05/16/2021 3:42 PM EST) Anatomical Region Laterality Modality Mammography 05/16/2021 1:31 PM EST Narrative 05/16/2021 3:42 PM EST [facility] Diagnostic Imaging Department [address] [place], [place] [id number] Patient: LUZMA QUAN D.O.B./Age/Sex: 1955 - 65 - F Unit#: [id number] Location/Status: [facility]/REG I Mnemonic/Ordering Site: [facility] Ordering Physician: MELODY BLANKENSHIP CNM [facility] Screening Digital - 05/16/21 - 1351 EXAM: [facility] Screening Digital EXAM DATE AND TIME: 05/16/2021 1:51 PM HISTORY: Screening. Sister had breast carcinoma age 60. COMPARISON: 05/07/19, 10/15/17, 03/18/16, 08/25/14 TECHNIQUE: CC and MLO views of both breasts were obtained using full field digital mammography. Bilateral digital breast tomosynthesis was performed in the MLO projection. Computer aided detection with the Anita Margarita.2-H was employed. TISSUE DENSITY: b. There are scattered areas of fibroglandular density. FINDINGS: No suspicious masses, grouped microcalcifications, or areas of architectural distortion are seen. There are rare benign calcifications. The skin and vascularity are unremarkable. IMPRESSION: Stable mammographic appearance of the breasts. No evidence of malignancy is seen. A negative mammogram in the presence of a clinically suspicious palpable abnormality does not preclude the possibility of malignancy or alter the indications for biopsy. BI-RADS: Category 2: Benign RECOMMENDATION(S): 1: Routine screening mammogram BILATERAL in 1 year. 69253, 51008 3342F, 7025F Dictating Physician: AALIYAH PEÑA MD Electronically Signed by: AALIYAH PEÑA MD Dic Date/Time: 05/16/211541 Sign date/Time: 05/16/211541 Procedure Note Aaliyah Peña MD - 03/20/2022 [facility] Diagnostic Imaging Department [address] [place] [address] Patient: LUZMA QUAN/Age/Sex: 1955 - 65 - F Unit#: [id number] [facility] Ordering Physician: MELODY BLANKENSHIP CNM [facility] Screening Digital - 05/16/21 - 1351 EXAM: [facility] Screening Digital EXAM DATE AND TIME: 05/16/2021 1:51 PM HISTORY: Screening. Sister had breast carcinoma age 60. COMPARISON: 05/07/19, 10/15/17, 03/18/16, 08/25/14 TECHNIQUE: CC and MLO views of both breasts were obtained using fullfield digital mammography. Bilateral digital breast tomosynthesis was performedin the MLO projection. Computer aided detection with the Anita Margarita.[employer] employed. TISSUE DENSITY: b. There are scattered [...] Routine screening mammogram BILATERAL in 1 year. 92572, 60978 3342F, 7025F Dictating Physician: AALIYAH PEÑA MD Electronically Signed by: AALIYAH PEÑA MD Dic Date/Time: 05/16/211541 Sign date/Time: 05/16/211541 Melody Blankenship CNM IMG BI PROCEDURES Final Result * VICKY DEXA AXIAL SKELETON (05/16/2021 3:22 PM EST) Anatomical Region Laterality Modality Mammography 05/16/2021 1:32 PM EST Narrative 05/16/2021 3:22 PM EST [facility] Diagnostic Imaging Department [address] [place] [id number] Patient: LUZMA QUAN /Age/Sex: 1955 - 65 - F Unit#: [id number] Location/Status: [facility]/REG CLI Mnemonic/Ordering Site: [facility] Ordering Physician: MELODY BLANKENSHIP CNM Vicky Dexa Axial Skeleton - 05/16/21 - 8556 HISTORY: Post menopausal woman with hormone depletion for screening bone densitometry. The patient is on steroid inhaler. TECHNIQUE: Bone densitometry is performed utilizing dual energy x-ray absorptiometry (DEXA) in the [employer] unit. The lumbar spine is evaluated in [...] bone mineralization in the right proximal femur. 74558 A report detailing these results has been enclosed. Dictating Physician: DAMION GLOVER MD Electronically Signed by: DAMION GLOVER MD Dic Date/Time: 05/16/211519 Sign date/Time: 02/16/22 1522 Procedure Note Damion Glover MD - 03/20/2022 [facility] Diagnostic Imaging Department [address] [place] [id number] Patient: LUZMA QUAN./Age/Sex: 1955 - 65 - F Unit#: [id number] Location/Status: [facility] CLI [facility] Ordering Physician: MELODY BLANKENSHIP CNM [facility] Dexa Axial Skeleton - 05/16/211450 HISTORY: Post menopausal woman with hormone depletion for screening bone densitometry. The patient is on steroid inhaler. TECHNIQUE: Bone densitometry is performed utilizing dual energy x-ray absorptiometry (DEXA) in the [employer] unit. The lumbar spine isevaluated in the [...] increased bone mineralization in the rightproximal femur. 49958 A report detailing these results has been enclosed. Dictating Physician: DAMION GLOVER MD Electronically Signed by: DMAION GLOVER MD Dic Date/Time: 05/16/21 1520 Sign date/Time: 05/16/21 1522 Melody Blankenship CN IMG BI PROCEDURES Final Result * (ABNORMAL) Lipid panel (05/10/2021) LDL/HDL Ratio 5(A) 0 - 4 Triglycerides 327(A) 0 - 150 mg/dL Cholesterol 220(A) 0 - 200 mg/dL HDL 44 >=40 mg/dL LDL Cholesterol 111(A) 0 - 100 mg/dL Blood Venous blood specimen / Unknown Result [facility] Historical Provider LAB BLOOD ORDERABLES Salome l Result * Hepatitis C Screening (04/27/2013) Hepatitis C Screening abstracted Result [facility] Historical Provider HEALTH MAINTENANCE Final Result from Last 3 Months or Most Recently Relevant to Health Maintenance Insurance [employer] Member Subscriber Plan / Payer (Ef fective 2019-Present) Name:Luzma Castano Relation to Subscriber:Self Name:Luzma Castano Payer ID:[id number] Group ID:[id number] Type:Not on file Address: [place] [facility] [place] [id number] Care Teams Environmental Services Aide Relationship Specialty Start Date End Date Colon-Neel Tamez MD [address] [place] [address] PCP - General Internal Medicine 11/18/24
== END 2024-12-09 10:45 | disposition home or self-care (01) ==
LOC: HO.HPS 10:13
PROVIDERS: PCP Student in an Organized Health Care Education/Training Program; Visit Provider Hospitalist
DX: J45.41 Moderate persistent asthma with (acute) exacerbation (principal); G47.33 Obstructive sleep apnea (adult) (pediatric); F51.01 Primary insomnia; J44.9 Chronic obstructive pulmonary disease, unspecified; K44.9 Diaphragmatic hernia without obstruction or gangrene; R10.12 Left upper quadrant pain
CPT/HCPCS: 99214; G2211

== ENCOUNTER → 2024-12-09 10:12 | Outpatient (BNVA) | payer OTHER, SELFPAY | PROVIDERS: PCP Student in an Organized Health Care Education/Training Program; Visit Provider Hospitalist | DX: J45.41 Moderate persistent asthma with (acute) exacerbation (principal); G47.33 Obstructive sleep apnea (adult) (pediatric); F51.01 Primary insomnia; J44.9 Chronic obstructive pulmonary disease, unspecified; R10.12 Left upper quadrant pain; K44.9 Diaphragmatic hernia without obstruction or gangrene | CPT/HCPCS: 99212 ==